=== PATIENT | female | born 1985 | race Caucasian/White ===

== ENCOUNTER → 2018-11-30 13:58 | Outpatient (CLI) | payer OTHER, SELFPAY ==
[2018-11-30 13:32] VITALS: BMI 47.1
[2018-11-30 15:51] LABS: hCG Titer Quant., Serum 1812 mIU/mL (1-3)
== END ==
PROVIDERS: Nurse Practitioner Women's Health; Family Provider Family Medicine; PCP Family Medicine; Referring Provider Obstetrics & Gynecology; Visit Provider Obstetrics & Gynecology
DX: Z34.90 Encounter for supervision of normal pregnancy, unspecified, unspecified trimester (principal)
CPT/HCPCS: 36415; 84702

== ENCOUNTER → 2018-12-02 10:18 | Outpatient (CLI) | payer OTHER, SELFPAY ==
[2018-11-30 13:32] VITALS: BMI 47.1
[2018-12-02 12:01] LABS: hCG Titer Quant., Serum 3530 mIU/mL (1-3)
== END ==
PROVIDERS: Family Provider Family Medicine; PCP Family Medicine; Referring Provider Nurse Practitioner Women's Health; Visit Provider Nurse Practitioner Women's Health
DX: Z34.90 Encounter for supervision of normal pregnancy, unspecified, unspecified trimester (principal)
CPT/HCPCS: 36415; 84702

== ENCOUNTER → 2018-12-18 10:04 | Outpatient (CLI) | payer OTHER, SELFPAY ==
[2018-12-18 09:23] VITALS: BMI 46.5
[2018-12-18 10:52] LABS: Absolute Lymphocyte Count 2.45 X10^3/ul (0.83-4.51); Absolute Neutrophil Count 6.4 X10^3/uL (2.0-7.7); Basophil# 0.02 X10^3/uL; Basophil% 0.2 % (0-1); Eosinophil# 0.09 X10^3/uL; Hematocrit 38.2 % (37-47); Hemoglobin 12.9 g/dl (12.0-15.0); Lymphocyte # 2.45 X10^3/ul (4.0); Lymphocyte % 26.3 % (19-41); Mean Corp Hgb Conc 33.8 g/gl (32-36); Mean Corpuscular Hgb 30.2 pg (27.0-32.0); Mean Corpuscular Volume 89.5 fL (81-99); Mean Platelet Vol. 9.6 fl (6.2-12.0); Monocyte# 0.37 X10^3/uL; Neutrophil # 6.38 X10^3/uL (2.7-7.7); Neutrophil % 68.3 % (47-70); POSITIVE COUNT NO; POSITIVE DIFFERENTIAL NO; POSITIVE MORPHOLOGY NO; Platelet Count 349 K/mm3 (150-450); RBC Distribution Width CV 13.1 % (11.6-14.6); RBC Distribution Width SD 42.4 fl (35.1-43.9); Red Blood Count 4.27 M/mm3 (4.2-5.4); White Blood Count 9.3 K/mm3 (4.4-11.0)
[2018-12-18 11:12] LABS: Glucose Challenge Gest 1H 50g 140 mg/dL (70-140)
[2018-12-18 12:06] LABS: HIV - WCH Non-Reactive (Nonreactive); Hepatitis B Surface Antibody Reactive; Hepatitis B Surface Antigen Non-Reactive (Nonreactive); Rubella IgG 95.4 IU/mL
[2018-12-18 15:18] LABS: Chlamydia Trachomatis by PCR Negative (Negative); Neisserai gonorrhoeae by PCR Negative (Negative); Probe Check PASS; Sample Adequacy Control PASS; Specimen Processing Control PASS
[2018-12-22 05:48] LABS: Rapid Plasmin Reagin (RPR) NONREACTIVE (NONREACTIVE)
== END ==
PROVIDERS: Family Provider Family Medicine; PCP Family Medicine; Referring Provider Obstetrics & Gynecology; Visit Provider Obstetrics & Gynecology
DX: Z34.90 Encounter for supervision of normal pregnancy, unspecified, unspecified trimester (principal); D68.61 Antiphospholipid syndrome
CPT/HCPCS: 82950; 85025; 86592; 86703; 86706; 86762; 86850; 86900; 87086; 87088; 87340; 87491; 87591; A4216

== ENCOUNTER → 2018-12-26 07:03 | Outpatient (CLI) | payer OTHER, SELFPAY ==
[2018-12-18 09:23] VITALS: BMI 46.5
[2018-12-26 07:58] LABS: Glucose GTT-Gestation. Fasting 85 mg/dL (<105)
[2018-12-26 09:25] LABS: Glucose GTT-Gestational 1 Hr 140 mg/dL (<190)
[2018-12-26 10:06] LABS: Glucose GTT-Gestational 2 Hr 120 mg/dL (<165)
[2018-12-26 11:49] LABS: Glucose GTT-Gestational 3 Hr 79 L (<145)
== END ==
PROVIDERS: Nurse Practitioner Women's Health; Family Provider Family Medicine; PCP Family Medicine; Visit Provider Obstetrics & Gynecology
DX: O99.810 Abnormal glucose complicating pregnancy (principal)
CPT/HCPCS: 36415; 82951; 82952

== ENCOUNTER → 2019-01-30 08:56 | Outpatient (CLI) | payer OTHER, SELFPAY ==
[2019-01-30 08:19] VITALS: BMI 46.5
[2019-01-30 10:07] LABS: T4 Free Direct 0.99 ng/dL (0.76-1.46); Thyroid Stim Hormone (TSH) 2.48 uIU/mL (0.358-3.74)
== END ==
PROVIDERS: Family Provider Family Medicine; PCP Family Medicine; Referring Provider Obstetrics & Gynecology; Visit Provider Obstetrics & Gynecology
DX: L65.9 Nonscarring hair loss, unspecified (principal)
CPT/HCPCS: 36415; 84439; 84443

== ENCOUNTER → 2019-02-27 16:21 | Outpatient (CLI) | payer OTHER, SELFPAY ==
[2019-02-27 15:46] VITALS: BMI 46.5
== END ==
PROVIDERS: Family Provider Family Medicine; PCP Family Medicine; Referring Provider Obstetrics & Gynecology; Visit Provider Obstetrics & Gynecology
DX: Z36.9 Encounter for antenatal screening, unspecified (principal)
CPT/HCPCS: 36415

== ENCOUNTER → 2019-05-15 16:33 | Outpatient (CLI) | payer OTHER, SELFPAY ==
[2019-05-15 15:46] VITALS: BMI 46.5
[2019-05-15 18:05] LABS: Glucose Challenge Gest 1H 50g 141 mg/dL (70-140)
== END ==
PROVIDERS: Family Provider Family Medicine; PCP Family Medicine; Referring Provider Obstetrics & Gynecology; Visit Provider Obstetrics & Gynecology
DX: O99.211 Obesity complicating pregnancy, first trimester (principal); Z3A.00 Weeks of gestation of pregnancy not specified
CPT/HCPCS: 36415; 82950

== ENCOUNTER → 2019-05-23 06:55 | Outpatient (CLI) | payer OTHER, SELFPAY ==
[2019-05-15 15:46] VITALS: BMI 46.5
[2019-05-23 08:56] LABS: Glucose GTT-Gestational 1 Hr 141 mg/dL (<190)
[2019-05-23 09:03] LABS: Glucose GTT-Gestation. Fasting 85 mg/dL (<105)
[2019-05-23 10:55] LABS: Glucose GTT-Gestational 3 Hr 76 L (<145)
[2019-05-23 10:57] LABS: Glucose GTT-Gestational 2 Hr 108 mg/dL (<165)
== END ==
PROVIDERS: Nurse Practitioner Women's Health; Family Provider Family Medicine; PCP Family Medicine; Referring Provider Obstetrics & Gynecology; Visit Provider Obstetrics & Gynecology
DX: O99.810 Abnormal glucose complicating pregnancy (principal); N96 Recurrent pregnancy loss
CPT/HCPCS: 36415; 82951; 82952

== ENCOUNTER 2019-05-29 02:55 | Outpatient (CLI) | payer OTHER, SELFPAY ==
[2019-05-15 15:46] VITALS: BMI 46.5
[2019-05-29 03:12] VITALS: BMI 48.0
--- NOTE | 2019-05-29 05:50 | OB.TRI.PN ---
Progress Notes Date of Service: 05/29/19 Progress Note: Patient presents for triage evaluation secondary to decreased movement FHT: 150 Moderate variability reactive no decelerations category I tracing 10 x 10 accels [place]: no Contractions Assessment and plan: decreased fm Reactive NST, reassuring maternal and status patient discharged to home to follow-up as scheduled See problem list details for additional plan information. - Problem List (1) Decreased movement affecting management of in third trimester Status: Acute Multi Select Codes - Urinary/Genital Urinary/Genital CPT Codes: 10619-48 non-stress test Interp
== END 2019-05-29 04:00 | disposition home or self-care (01) ==
LOC: WPOUT 03:06 → WP 03:06
PROVIDERS: Family Provider Family Medicine; PCP Family Medicine; Referring Provider Obstetrics & Gynecology; Visit Provider Obstetrics & Gynecology
DX: O36.8130 Decreased fetal movements, third trimester, not applicable or unspecified (principal); Z3A.00 Weeks of gestation of pregnancy not specified
CPT/HCPCS: 59025; 59050; 99218; G0378

== ENCOUNTER 2019-06-18 15:20 | Outpatient (CLI) | payer OTHER, SELFPAY ==
[2019-06-11 08:47] VITALS: BMI 48.0
[2019-06-18 15:33] VITALS: BMI 48.2
--- NOTE | 2019-06-18 16:50 | OB.TRI.HP_ITS ---
- Problem List (1) Abnormal glucose affecting Status: Acute Comment: 3hr results normal. 2nd trimester testing was abnormal, needs 3 hr. (2) Family history of neural tube defect Status: Acute Comment: plan AFP screen, disussed folic acid supplementation (3) History of recurrent miscarriages Status: Acute Comment: APL workup negative (4) Obesity affecting Status: Acute Qualifiers: Trimester: first trimester Qualified Code(s): O99.211 - Obesity co mplicating , first trimester Comment: discussed heaelthy weight gain. 1 tm glucola. plan growth us and testing after 32 weeks (5) Status: Acute Qualifiers: Weeks of gestation: 30 weeks Qualified Code(s): Z3A.30 - 30 weeks gestation of Comment: carrier and genetic testing declined. AFP drawn 02/27- (6) Supervision of high risk , antepartum Status: Acute Comment: PRR GERALDINE 08/04/19 girl Amy Portillo Oliver History of Present Illness Reason For Visit: NST Final GERALDINE Source: LMP Allergies No Known Allergies Allergy (Verified 06/18/19 15:34) - Pertinent Past Medical History Surgical History: Past Surgical History (Last Reviewed 05/29/19 @ 15:35 by Patience Triana) Status post breast reduction NST - FHR Rate Baby A Baseline: 130 Variability:: Moderate Accelerations:: 15 x 15 Decelerations:: None NST Reactive:: Yes FHR Category:: Category I Uterine Activity:: no regular Multi Select Codes - Urinary/Genital Urinary/Genital CPT Codes: 31651-08 non-stress test Interp
== END 2019-06-18 16:15 | disposition home or self-care (01) ==
LOC: WPOUT 15:24 → WP 15:24
PROVIDERS: Family Provider Family Medicine; PCP Family Medicine; Referring Provider Obstetrics & Gynecology; Visit Provider Obstetrics & Gynecology
DX: Z34.90 Encounter for supervision of normal pregnancy, unspecified, unspecified trimester (principal)
CPT/HCPCS: 59025

== ENCOUNTER → 2019-06-19 13:56 | Outpatient (CLI) | payer OTHER, SELFPAY ==
[2019-06-11 08:47] VITALS: BMI 48.0
[2019-06-18 15:33] VITALS: BMI 48.2
--- NOTE | 2019-06-19 13:57 | US_ITS ---
STUDY: SECOND AND THIRD TRIMESTER OBSTETRICAL ULTRASOUND - LIMITED REASON FOR EXAM: Female, 33 years old GROWTH -- SUPERVISION OF HIGH RISK -- OBESITY AFFECTING LMP: October 28, 2018 based on current estimate determined at June 11, 2019 office visit. PRIOR ULTRASOUND: None. TECHNIQUE: Transabdominal TECHNICAL QUALITY: Adequate. FINDINGS: There is a single intrauterine fetus. The fetus is in a cephalic presentation. There is demonstrated cardiac activity with a heart rate of 157 bpm. There is a normal amniotic fluid volume. The largest amniotic fluid pocket measures 5.1 cm. The amniotic fluid index (DU) is 16.75 cm. The placenta is anterior in location and is not low lying. There are Grade 2 placental changes. The maternal cervix is obscured by cephalic presentation and further, not definitively evaluated, secondary to maternal empty urinary bladder. BIOMETRY: BPD: 8.61 cm: 34 weeks, 5 days HC: 30.38 cm: 33 weeks, 5 days AC: 29.87 cm: 33 weeks, 5 days FL: 6.22 cm: 32 weeks, 1 days FL/AC 20.81 FL/BPD 72.21 FL/HC 20.46 CI 82.13 HC/AC 1.02 Age by LMP: 33 weeks, 3 days. GERALDINE by LMP: August 04, 2019. age by current US: 33 weeks, 3 days. GERALDINE by current US: August 04, 2019. Estimated weight: 2199 grams, +/- 325 grams, 38.9 percentile. Gender: Indeterminate. anatomic survey not performed on this late gestation. US/OB Limited With Biometrics IMPRESSION: Viable, harmon, cephalic presentation intrauterine . Please see above. All calculated biometric indices/ratios lie within established normal ranges. anatomic survey not performed in this relatively late gestation. Normal DU relative to gestational age (8 to18 from week 22 to week 35). Electronically Signed: Randolph Anthony MD at 10:05 EST , Service support ,
== END ==
PROVIDERS: Family Provider Family Medicine; PCP Family Medicine; Referring Provider Obstetrics & Gynecology; Visit Provider Obstetrics & Gynecology
DX: O09.90 Supervision of high risk pregnancy, unspecified, unspecified trimester (principal); O99.210 Obesity complicating pregnancy, unspecified trimester; Z3A.00 Weeks of gestation of pregnancy not specified
CPT/HCPCS: 76816

== ENCOUNTER → 2019-07-12 12:53 | Outpatient (CLI) | payer OTHER, SELFPAY ==
[2019-06-25 15:47] VITALS: BMI 48.2
--- NOTE | 2019-07-12 12:54 | US_ITS ---
STUDY: SECOND AND THIRD TRIMESTER OBSTETRICAL ULTRASOUND REASON FOR EXAM: Female, 33 years old GROWTH LMP: October 28, 2018. TECHNIQUE: Transabdominal TECHNICAL QUALITY: Adequate. PRIOR ULTRASOUND: Comparison is made with prior examination dated June 19, 2019 and July 12, 2019. FINDINGS: There is a single intrauterine fetus. The fetus is in a cephalic presentation. There is demonstrated cardiac activity with a heart rate of 150 bpm. There is a normal amniotic fluid volume. The largest amniotic fluid pocket measures 5.2 cm. The amniotic fluid index (DU) is 13.7 cm. The placenta is anterior in location and is not low lying. There are Grade 1 placental changes. The cervix was not able to be measured due to the head position. The adnexal regions are not visualized. BIOMETRY: BPD: 8.8 cm: 35 weeks, 3 days HC: 33.6 on: 35 weeks, 3 days AC: 32.3 cm: 36 weeks, 1 days FL: 6.9 cm: 35 weeks, 1 days CI: 79% FL/BPD: 78% FL/HC: FL/AC: 21% HC/AC: 1.04 age by current US: 36 weeks, 1 days. GERALDINE by current US: August 08, 2019. Estimated weight: 2854 grams, +/- 422 grams, 36 %. age by prior US: 36 weeks, 5 days. GERALDINE by prior US: August 04, 2019. Age by LMP: 36 weeks, 5 days. GERALDINE by LMP: August 04, 2019. . US/OB Limited With Biometrics IMPRESSION: Single live intrauterine gestation with a mean gestational age of 36 weeks and 5 days. The measurements obtained today following thin the normal expected range. Electronically Signed: Harlan Matthews, at 9:38 EST , Service support ,
--- NOTE | 2019-07-12 12:54 | US_ITS ---
STUDY: OBSTETRICAL ULTRASOUND - BIOPHYSICAL PROFILE REASON FOR EXAM: Female, 33 years old WELL BEING LMP: October 27, 2018. PRIOR ULTRASOUND: Comparison is made with prior examination dated June 19, 2019. TECHNIQUE: Transabdominal TECHNICAL QUALITY: Adequate. FINDINGS: There is a single intrauterine fetus. The fetus is in a cephalic presentation. There is demonstrated cardiac activity with a heart rate of 150 bpm. There is a normal amniotic fluid volume. The largest amniotic fluid pocket measures 6.4 cm. The amniotic fluid index (DU) is 13.2 cm. The placenta is anterior in location and is not low lying. There are Grade 1 placental changes. Age by LMP: 36 weeks, 5 days. GERALDINE by LMP: August 04, 2019. age by prior US: 36 weeks, 1 days. GERALDINE by prior US: August 08, 2019. BIOPHYSICAL PROFILE: Breathing Movements (FBM): 2 Gross Body Movements (GBM): 2 Tone (FT): 2 Amniotic Fluid Volume (AFV): 2 TOTAL SCORE: US/Biophysical Profile IMPRESSION: Normal biophysical profile of 01/25. Electronically Signed: Harlan Matthews, at 15:28 EST , Service support ,
== END ==
PROVIDERS: Family Provider Family Medicine; PCP Family Medicine; Referring Provider Obstetrics & Gynecology; Visit Provider Obstetrics & Gynecology
DX: O99.810 Abnormal glucose complicating pregnancy (principal); Z3A.36 36 weeks gestation of pregnancy
CPT/HCPCS: 76816; 76818; 87081

== ENCOUNTER 2019-07-23 07:40 | Inpatient (IN) | payer OTHER, SELFPAY ==
[2019-07-17 15:34] VITALS: BMI 48.2
[2019-07-23 08:25] VITALS: BMI 48.4
[2019-07-23] MEDS: Lactated Ringers 1,000 ML 50 ML IV (10:00)
[2019-07-23 10:20] LABS: Hematocrit 37.9 % (37-47); Hemoglobin 12.6 g/dL (12.0-15.0); Mean Corp Hgb Conc 33.2 g/dL (32-36); Mean Corpuscular Hgb 29.8 pg (27.0-32.0); Mean Corpuscular Volume 89.6 fL (81-99); Mean Platelet Vol. 10.3 fl (6.2-12.0); Platelet Count 322 K/mm3 (150-450); RBC Distribution Width CV 13.6 % (11.6-14.6); RBC Distribution Width SD 44.2 fl (35.1-43.9); Red Blood Count 4.23 M/mm3 (4.2-5.4); White Blood Count 14.3 K/mm3 (4.4-11.0)
[2019-07-23 10:30] LABS: Prothrombin Time (Protime)PT. 12.8 SECONDS (11.7-14.9)
[2019-07-23 10:31] LABS: Partial Thromboplast Time 25.4 Seconds (24.1-36.2)
[2019-07-23] MEDS: Oxytocin 30 units/NS 500 ml 30 UNITS/500 ML IV.SOLN IV (10:40)
[2019-07-23 10:58] LABS: AST(SGOT) 12 U/L (15-37); Alanine Aminotransfer ALT/SGPT 12 U/L (13-56); Creatinine, Serum 0.57 mg/dL (0.55-1.02); EST Glomerular Filtration Rate 131 mL/min (>60); Est Glom Filt Rate - Afr Amer 158 mL/min (>60); Estimated Creatinine Clearance 131.42 ml/min; Uric Acid 4.6 mg/dL (2.6-6.0)
[2019-07-23] MEDS: Lactated Ringers 500 ML 999 ML IV ×2 (12:04→13:48)
[2019-07-23] MEDS: fentaNYL-bupivacaine (epidural) 100 ML BAG EPIDURAL (12:50)
--- NOTE | 2019-07-23 13:04 | HP.PCM_ITS ---
- Problem List (1) Abnormal glucose affecting Status: Acute Comment: 3hr results normal. (2) Family history of neural tube defect Status: Acute Comment: negative AFP screen, disussed folic acid supplementation (3) History of recurrent miscarriages Status: Acute Comment: APL workup negative (4) Obesity affecting Status: Acute Qualifiers: Comment: discussed heaelthy weight gain. 1 tm glucola nl. adequate growth us and testing after 32 weeks (5) Status: Acute Qualifiers: Comment: carrier and genetic testing declined. AFP drawn 02/27- nl (6) Supervision of high risk , antepartum Status: Acute Comment: PRR GERALDINE 08/04/19 girl Amy PC Bandar Oliver History Date of Admission: 07/23/19 Final GERALDINE Source: LMP History of this : This is a 34 year-old, , at 38 weeks gestational age presents IAL SROM clear fluid. she co irregular ctx no vb good fm Surgical History: Surgical History (Last Reviewed 07/12/19 @ 14:04 by Trisha Hicks) Status post breast reduction Z98.890 Allergies No Known Allergies Allergy (Verified 07/23/19 10:09) Home Medications: Home Medications Vit No.124/Iron/Folic [ Vitamin Tablet] 1 ea PO DAILY 09/07/15 ondansetron HCl 4 mg tablet 4 mg PO TID PRN #60 tab 05/31/19 famotidine 20 mg tablet 20 mg PO DAILY #30 tab 07/12/19 Smoking Status: Never smoker Alcohol: None Number of Fetus(es): 1 NST - FHR Rate Baby A Baseline: 130 Variability:: Moderate Accelerations:: 15 x 15 Decelerations:: None NST Reactive:: Yes FHR Category:: Category I Uterine Activity:: irregular History Past Pregnancies: Past Pregnancies previous term previous miscarriages Labs: Mom's Labs & Results 07/23/19 07/23/19 07/23/19 10:00 10:00 10:00 WBC 14.3 H RBC 4.23 Hgb 12.6 Hct 37.9 MCV 89.6 MCH 29.8 MCHC 33.2 RDW Std Deviation 44.2 H RDW Coeff of Melissa 13.6 Plt Count 322 MPV 10.3 PT 12.8 INR 1.0 APTT 25.4 Creatinine Estim Creat Clear Calc Est GFR (MDRD) Af Amer Est GFR (MDRD) Non-Af Uric Acid AST ALT Blood Type A POSITIVE Antibody Screen NEGATIVE 07/23/19 10:00 WBC RBC Hgb Hct MCV MCH MCHC RDW Std Deviation RDW Coeff of Melissa Plt Count MPV PT INR APTT Creatinine 0.57 Estim Creat Clear Calc 131.42 Est GFR (MDRD) Af Amer 158 Est GFR (MDRD) Non-Af 131 Uric Acid 4.6 AST 12 L ALT 12 L Blood Type Antibody Screen Course Did the patient receive Yes care? Labs Blood Type: A RH: POSITIVE RPR/VDRL/Syphilis Nonreactive Rubella status Immune HbSAg Negative Date Done: 12/18/18 Chlamydia Negative Gonorrhea Negative HIV/AIDS Non-Reactive Group B Strep: Negative Current Obstetrical History Gestational Diabetes No Incompetent Cervix No Infertility No IUGR No Macrosomia No Hypertension/Pre-eclampsia No Placenta Previa/Abruption No PTL/PROM No Uterine anomaly No Oligohydramnios No Polyhydramnios No Multiple gestation No Past Medical History Asthma No Diabetes No Hypertension No Heart disease No Mitral valve prolapse No Neurologic/Seizure disorder/ No Migraines Kidney disease No Liver disease No Varicosities No Clotting disorders/Hx of DVT No Thyroid Dysfunction No Other medical diseases No Psychiatric disorders Yes: anxiety-no meds or issues Major trauma No Abnormal PAP smear No Sleep apnea No Mammogram in the last 2 years No Social History Marital Status: Alleged father Deyvi Hx Smoking No Smoking Status Never smoker How long have you used n/a substances (years)? Expected Delivery Method: Spontaneous Vaginal Review of Systems Constitutional: Denies: Fever, Malaise Eyes: Denies: Blurred vision, Vision Change HEENT: Denies: Head Aches, Visual Changes Cardiovascular: Denies: Chest Pain, Palpitations Respiratory: Denies: Cough, Shortness of Breath, Wheezing Gastrointestinal: Denies: Abdominal Pain, Diarrhea, Nausea, Vomiting Genitourinary: Denies: Dysuria, Hematuria Musculoskeletal: Denies: Joint Pain, Muscle pain Skin: Denies: Lesions, Rash Neurological: Denies: Blurred vision, Focal weakness, Headaches Psychiatric: Denies: Anxiety, Depression Endocrine: Denies: Heat/ Cold Intolerance Hematologic/ Lymphatic: Denies: Easy Bruising, Easy Bleeding Physical Exam General: Alert, Cooperative, No apparent distress HEENT: Atraumatic, Normocephalic. Negative for: Thyromegaly, Lymphadenopathy Cardiovascular: Regular rate Lungs: Normal air movement Abdomen: Soft, Non Tender, Gravid Neurological: Deep Tendon Reflexes 2+/4 and Symmetrical, Neuro grossly intact. 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 Negative for: Vulvar lesions Estimated gestational size: Appropriate for gestational size Presentation: Cephalic Assessment/Plan All Active Problems (Last Reviewed 07/17/19 @ 15:33 by Trisha Hicks) Abnormal glucose affecting (Acute) Family history of neural tube defect (Acute) History of recurrent miscarriages (Acute) Obesity affecting (Acute) (Acute) Supervision of high risk , antepartum (Acute) Decreased movement affecting management of in third trimester (Resolved) This is a 34 year-old, , at 38 weeks gestational age presents IAL SROM Patient presents SROM IAL, plan expectant management for , pitocin PRN. Pain management: Plans epidural. GBS neg. Management of any complications: None I have reviewed the [facility] and made any clinically relevant updates.
[2019-07-23] MEDS: Amnioinfusion- 0.9% NS 1,000 ML IV.SOLN. 500 ML INTRA-UTER (15:04)
[2019-07-23] MEDS: Ondansetron 4 MG/2 ML Vial IV (15:57)
[2019-07-23] MEDS: Oxytocin 30 units/NS 500 ml 30 UNITS/500 ML IV.SOLN 334 UNITS IV (16:42)
--- NOTE | 2019-07-23 16:58 | PCM.OPRPT ---
Problem List (1) Abnormal glucose affecting Status: Acute Comment: 3hr results normal. (2) Family history of neural tube defect Status: Acute Comment: negative AFP screen, disussed folic acid supplementation (3) History of recurrent miscarriages Status: Acute Comment: APL workup negative (4) Obesity affecting Status: Acute Qualifiers: Comment: discussed heaelthy weight gain. 1 tm glucola nl. adequate growth us and testing after 32 weeks (5) Status: Acute Qualifiers: Comment: carrier and genetic testing declined. AFP drawn 10- nl (6) Supervision of high risk , antepartum Status: Acute Comment: PRR GERALDINE 08/04/19 girl Amy Portillo Oliver Vaginal Delivery Maternal Presentation: Active Labor ial Method of Induction: Pitocin Amniotic Membrane Rupture Type: Spontaneous at home Amniotic Fluid Description: Clear Date of Procedure: 07/23/19 Pre-Operative Diagnosis: ial Post-Operative Diagnosis: same Surgery/ Procedure Performed: Spontaneous Vaginal Delivery Type of Anesthesia: Epidural Description of Procedure: Patient began pushing and developed a bradycardia and therefore a small episiotomy was cut midline and delivered the head in the DAQUAN presentation. The head was delivered atraumatically and a loose nuchal cord ?1 was identified and easily reduced over the 's head. The anterior and posterior shoulders delivered without complication followed by the rest of the and the infant was placed on the maternal abdomen. Delayed cord clamping was employed for approximately 60 seconds. Cord was clamped and cut and gentle traction was applied to the cord and the placenta delivered spontaneously immediately following it was noted to be intact with three-vessel cord. The perineum and vagina were inspected and noted to have no extension of the episiotomy which was the level of a second-degree perineal laceration which was repaired in the usual fashion with 3-0 Vicryl Rapide. EBL was 200 cc. A tight true knot was noted in the cord approximately 6 cm from the umbilical insertion. Patient and infant tolerated delivery well. Presentation: DAQUAN Placental Delivery Description: Spontaneous Placenta Disposition: [facility] Cord Vessel Description: 3 Vessels Nuchal Cord Compression: With compression Cord Entanglement: Around neck x 1, loose, True Knot(s) Estimated Blood Loss: 300 A gender: Female Episiotomy Description: Midline, Perineal Extension/lac, 2nd degree Medications given after delivery: IV Pitocin Complications: None Multi Select Codes - Urinary/Genital Urinary/Genital CPT Codes: 84525 Vaginal Delivery [facility]
[2019-07-23 18:56] VITALS: BP 144/69; PULSE 102; RESP 18; TEMP 36.7
[2019-07-23 20:50] VITALS: BP 136/78; PULSE 92; RESP 16; TEMP 36.4; O2SAT 97
[2019-07-23 23:45] VITALS: BP 138/78; PULSE 87; RESP 16; TEMP 36.4
[2019-07-24] MEDS: Senna/Docusate Sodium 1 Tablet PO ×2 (00:56→20:29)
[2019-07-24 04:19] VITALS: BP 133/74; PULSE 82; RESP 16; TEMP 36.8
--- NOTE | 2019-07-24 06:58 | DCINST_ITS ---
Discharge Diet: No Restrictions Discharge Activity: Return to Normal Activity, May not drive while taking narcotic pain medications., May Shower May resume sexual activity in: 4-6 weeks Call your doctor if your incision/area has: Continuous Slow Oozing, Sudden Increased Bleeding, Increased Pain/ Swelling, Increased Redness, Foul Smelling Discharge Additional Instructions: If you experience any of the following, contact your healthcare provider. * Bleeding that soaks a pad every hour for 2 hours * Fever 100.4 or higher * Unrelieved incision or abdominal pain * Swelling, redness, discharge or bleeding from your incision or episiotomy site * Your incision begins to separate * Problems urinating (including inability to urinate or burning while urinating). * Visual changes * Severe headache * Flu-like symptoms * Pain or redness in one of both of your breasts * Pain, warmth, tenderness or swelling in your legs, especially the calf area * Frequent nausea and vomiting * Symptoms of depression or anxiety If you experience any of the following, call 911 or go to the nearest Emergency Room. * Chest pain * Problems breathing * Seizure activity * Partial or complete paralysis of a body part, slurred speech, weakness or drooping of the face, or a sudden inability to walk or hold your balance Allergies/Adverse Reactions: Allergies No Known Allergies Allergy (Verified 07/23/19 10:09) Medications to take at Discharge Vit No.124/Iron/Folic [ Vitamin Tablet] 1 ea PO DAILY 09/07/15 ondansetron HCl 4 mg tablet 4 mg PO TID PRN #60 tab 05/31/19 famotidine 20 mg tablet 20 mg PO DAILY #30 tab 07/12/19 Please Follow Up With: Hilaria Quick MD - [phone] When: Call to make an appointment with your doctor in 6 weeks. If you had elevated Blood pressure or 4th degree laceration you will need to be seen in 2 weeks. Primary Care Physician: Joe Pillai III, MD [Primary Care Provider] - Test Results: Test results from this visit will be discussed in further detail at your follow- up appointment, if applicable.
[2019-07-24 07:36] VITALS: BP 125/76; PULSE 78; RESP 20; TEMP 36.3
--- NOTE | 2019-07-24 08:45 | PCM.PN.OB ---
Subjective: Doing well, no complaints.Pain controlled. Denies CP, SOB, N,V. Ambulating well, tolerating po. Lochia moderate, going well. - Physical Exam Vitals/I&O's: Vital Signs Temp Pulse Resp BP Pulse Ox 97.4 F L 78 20 H 125/76 H 97 07/24/19 07:36 07/24/19 07:36 07/24/19 07:36 07/24/19 07:36 07/23/19 20:50 Oxygen Delivery Method Room Air Weight: 300 lb 6.4 oz Body Mass Index (BMI) 48.4 Intake and Output for Last 24 Hours 07/22/19 07/23/19 07/24/19 23:59 23:59 23:59 Intake Total 2339.16 / 2339.16 Output Total 400 / 400 400 / 400 Balance 1939.16 / 193.16 -400 / -400 General: Alert, Oriented x3 Abdomen: Soft, Non Tender, Non-Distended, - - FF below U Laboratory Results 07/23/19 10:00: WBC 14.3 H, RBC 4.23, Hgb 12.6, Hct 37.9, MCV 89.6, MCH 29.8, MCHC 33.2, RDW Std Deviation 44.2 H, RDW Coeff of Melissa 13.6, Plt Count 322, MPV 10.3 07/23/19 10:00: Blood Type A POSITIVE, Antibody Screen NEGATIVE 07/23/19 10:00: PT 12.8, INR 1.0, APTT 25.4 07/23/19 10:00: Creatinine 0.57, Estim Creat Clear Calc 131.42, Est GFR (MDRD) Af Amer 158, Est GFR (MDRD) Non-Af 131, Uric Acid 4.6, AST 12 L, ALT 12 L Current Medications Acetaminophen (Tylenol) 1,000 mg PO Q8H PRN PRN PRN Reason: Pain Score 1-3/10 Bisacodyl (Dulcolax) 10 mg RECTAL UD PRN PRN Reason: If no BM Dibucaine (Dibucaine) 1 applic TOPICAL TID PRN PRN; Protocol PRN Reason: Discomfort Hydrocortisone (Hytone) 1 applic TOPICAL TID PRN PRN; Protocol PRN Reason: Discomfort Methylergonovine Maleate (Methergine) 0.2 mg IM X1 PRN PRN Reason: Excess bleeding/uterine atony Naproxen (Naprosyn) 500 mg PO Q8H PRN PRN PRN Reason: Pain Score 1-3/10 Ondansetron HCl (Zofran) 4 mg IV Q4H PRN PRN PRN Reason: Nausea Oxycodone HCl (Oxyir) 5 - 10 mg PO Q4H PRN PRN PRN Reason: Pain Score 4-10/10 Senna/Docusate Sodium (Senokot-S, Barbra-Colace) 1 - 2 tablet PO DAILY PRN PRN PRN Reason: Constipation Last Admin: 07/24/19 00:56 Dose: 2 tablet Documented by: Simethicone (Mylicon) 80 mg PO PCHS PRN PRN Reason: Indigestion/Stomach pain Sodium Chloride () 5 - 15 ml IV UD PRN PRN Reason: SALINE FLUSH Medical Necessity - Tobacco Use Smoking Status: Never smoker Assessment/Plan All Active Problems (Last Reviewed 07/17/19 @ 15:33 by Trisha Hicks) Abnormal glucose affecting (Acute) Family history of neural tube defect (Acute) History of recurrent miscarriages (Acute) Obesity affecting (Acute) (Acute) Supervision of high risk , antepartum (Acute) Decreased movement affecting management of in third trimester (Resolved) s/p PPD # 1 1. routine post delivery care 2. breast feeding- support given 3. rh positive 4. rubella immune
[2019-07-24 11:55] VITALS: BP 141/80; PULSE 97; RESP 17; TEMP 36.5
[2019-07-24 15:41] VITALS: BP 133/73; PULSE 95; RESP 14; TEMP 36.9
[2019-07-24 20:13] VITALS: BP 144/83; PULSE 75; RESP 14; TEMP 36.6
--- NOTE | 2019-07-24 22:00 | NURSING ---
this RN gave bedside report to anuj MENDES. that RN to assume care of pt at this time.
[2019-07-24 23:28] VITALS: BP 144/88; PULSE 76; RESP 18; TEMP 36.7
[2019-07-25 03:34] VITALS: BP 139/83; PULSE 96; RESP 18; TEMP 36.7
[2019-07-25 07:30] VITALS: BP 123/65; PULSE 75; RESP 16; TEMP 36.5
--- NOTE | 2019-07-25 08:32 | PCM.PN.OB ---
Subjective: Doing well, no complaints.Pain controlled. Denies CP, SOB, N,V. Ambulating well, tolerating po. Lochia moderate, going well. - Physical Exam Vitals/I&O's: Vital Signs Temp Pulse Resp BP Pulse Ox 97.7 F L 75 16 123/65 H 97 07/25/19 07:30 07/25/19 07:30 07/25/19 07:30 07/25/19 07:30 07/23/19 20:50 Oxygen Delivery Method Room Air Weight: 300 lb 6.4 oz Body Mass Index (BMI) 48.4 Intake and Output for Last 24 Hours 07/23/19 07/24/19 07/25/19 23:59 23:59 23:59 Intake Total 2339.16 / 2339.16 Output Total 400 / 400 400 / 400 Balance 1939.16 / 1938.16 -400 / -400 General: Alert, Oriented x3 Abdomen: Soft, Non Tender, - - FF below U Current Medications Acetaminophen (Tylenol) 1,000 mg PO Q8H PRN PRN PRN Reason: Pain Score 1-3/10 Bisacodyl (Dulcolax) 10 mg RECTAL UD PRN PRN Reason: If no BM Dibucaine (Dibucaine) 1 applic TOPICAL TID PRN PRN; Protocol PRN Reason: Discomfort Hydrocortisone (Hytone) 1 applic TOPICAL TID PRN PRN; Protocol PRN Reason: Discomfort Methylergonovine Maleate (Methergine) 0.2 mg IM X1 PRN PRN Reason: Excess bleeding/uterine atony Naproxen (Naprosyn) 500 mg PO Q8H PRN PRN PRN Reason: Pain Score 1-3/10 Ondansetron HCl (Zofran) 4 mg IV Q4H PRN PRN PRN Reason: Nausea Oxycodone HCl (Oxyir) 5 - 10 mg PO Q4H PRN PRN PRN Reason: Pain Score 4-10/10 Senna/Docusate Sodium (Senokot-S, Barbra-Colace) 1 - 2 tablet PO DAILY PRN PRN PRN Reason: Constipation Last Admin: 07/24/19 20:29 Dose: 2 tablet Documented by: Simethicone (Mylicon) 80 mg PO PCHS PRN PRN Reason: Indigestion/Stomach pain Sodium Chloride () 5 - 15 ml IV UD PRN PRN Reason: SALINE FLUSH Medical Necessity - Tobacco Use Smoking Status: Never smoker Assessment/Plan All Active Problems (Last Reviewed 07/17/19 @ 15:33 by Trisha Hicks) Abnormal glucose affecting (Acute) Family history of neural tube defect (Acute) History of recurrent miscarriages (Acute) Obesity affecting (Acute) (Acute) Supervision of high risk , antepartum (Acute) Decreased movement affecting management of in third trimester (Resolved) s/p PPD # 2 1. routine post delivery care 2. breast feeding- support given 3. rh positive 4. rubella immune 5. Enc stool softener 6. home today
--- NOTE | 2019-07-25 08:33 | DCINST_ITS ---
Discharge Diet: No Restrictions Discharge Activity: Return to Normal Activity, May not drive while taking narcotic pain medications., May Shower May resume sexual activity in: 4-6 weeks Call your doctor if your incision/area has: Continuous Slow Oozing, Sudden Increased Bleeding, Increased Pain/ Swelling, Increased Redness, Foul Smelling Discharge Additional Instructions: If you experience any of the following, contact your healthcare provider. * Bleeding that soaks a pad every hour for 2 hours * Fever 100.4 or higher * Unrelieved incision or abdominal pain * Swelling, redness, discharge or bleeding from your incision or episiotomy site * Your incision begins to separate * Problems urinating (including inability to urinate or burning while urinating). * Visual changes * Severe headache * Flu-like symptoms * Pain or redness in one of both of your breasts * Pain, warmth, tenderness or swelling in your legs, especially the calf area * Frequent nausea and vomiting * Symptoms of depression or anxiety If you experience any of the following, call 911 or go to the nearest Emergency Room. * Chest pain * Problems breathing * Seizure activity * Partial or complete paralysis of a body part, slurred speech, weakness or drooping of the face, or a sudden inability to walk or hold your balance Allergies/Adverse Reactions: Allergies No Known Allergies Allergy (Verified 07/23/19 10:09) Medications to take at Discharge Vit No.124/Iron/Folic [ Vitamin Tablet] 1 ea PO DAILY 09/07/15 ondansetron HCl 4 mg tablet 4 mg PO TID PRN #60 tab 05/31/19 famotidine 20 mg tablet 20 mg PO DAILY #30 tab 07/12/19 Primary Care Physician: Joe Pillai III, MD [Primary Care Provider] - Test Results: Test results from this visit will be discussed in further detail at your follow- up appointment, if applicable.
--- NOTE | 2019-07-25 08:33 | PCM.DCVAG ---
Discharge Diet: No Restrictions Discharge Activity: Return to Normal Activity, May not drive while taking narcotic pain medications., May Shower May resume sexual activity in: 4-6 weeks Call your doctor if your incision/area has: Continuous Slow Oozing, Sudden Increased Bleeding, Increased Pain/ Swelling, Increased Redness, Foul Smelling Discharge Additional Instructions: If you experience any of the following, contact your healthcare provider. Bleeding that soaks a pad every hour for 2 hours Fever 100.4 or higher Unrelieved incision or abdominal pain Swelling, redness, discharge or bleeding from your incision or episiotomy site Your incision begins to separate Problems urinating (including inability to urinate or burning while urinating). Visual changes Severe headache Flu-like symptoms Pain or redness in one of both of your breasts Pain, warmth, tenderness or swelling in your legs, especially the calf area Frequent nausea and vomiting Symptoms of depression or anxiety If you experience any of the following, call 911 or go to the nearest Emergency Room. Chest pain Problems breathing Seizure activity Partial or complete paralysis of a body part, slurred speech, weakness or drooping of the face, or a sudden inability to walk or hold your balance Allergies/Adverse Reactions: Allergies No Known Allergies Allergy (Verified 07/23/19 10:09) Medications to take at Discharge Vit No.124/Iron/Folic [ Vitamin Tablet] 1 ea PO DAILY 09/07/15 ondansetron HCl 4 mg tablet 4 mg PO TID PRN #60 tab 05/31/19 famotidine 20 mg tablet 20 mg PO DAILY #30 tab 07/12/19 Primary Care Physician: Joe Pillai III, MD [Primary Care Provider] - Test Results: Test results from this visit will be discussed in further detail at your follow-up appointment, if applicable.
[2019-07-25] MEDS: Naproxen 250 MG Tablet 500 MG PO (09:45)
[2019-07-25 09:47] VITALS: BP 142/83; PULSE 80; TEMP 36.6
[2019-07-25 12:59] VITALS: BP 147/91; PULSE 75; RESP 16; TEMP 36.4; O2SAT 95
== END 2019-07-25 13:20 | disposition home or self-care (01) | DRG 807 ==
PROVIDERS: Admitting Provider Obstetrics & Gynecology; Family Provider Family Medicine; PCP Family Medicine; Referring Provider Obstetrics & Gynecology; Visit Provider Obstetrics & Gynecology
DX: O42.02 Full-term premature rupture of membranes, onset of labor within 24 hours of rupture (principal); Z37.0 Single live birth; O70.1 Second degree perineal laceration during delivery; O99.89 Other specified diseases and conditions complicating pregnancy, childbirth and the puerperium; R00.1 Bradycardia, unspecified; O69.1XX0 Labor and delivery complicated by cord around neck, with compression, not applicable or unspecified; O69.2XX0 Labor and delivery complicated by other cord entanglement, with compression, not applicable or unspecified; O99.62 Diseases of the digestive system complicating childbirth; K21.9 Gastro-esophageal reflux disease without esophagitis; O26.23 Pregnancy care for patient with recurrent pregnancy loss, third trimester; O99.814 Abnormal glucose complicating childbirth; O99.214 Obesity complicating childbirth; E66.9 Obesity, unspecified; Z3A.38 38 weeks gestation of pregnancy; Z82.79 Family history of other congenital malformations, deformations and chromosomal abnormalities
CPT/HCPCS: 59025; 59050; 82565; 84450; 84460; 84550; 85027; 85610; 85730; 86850; 86900; 86901; 99218; J7030; J7120; G0378; J2405

== ENCOUNTER → 2020-09-04 13:03 | Outpatient (CLI) | payer OTHER, SELFPAY ==
[2020-09-04 08:07] VITALS: BMI 44.6
[2020-09-09 16:11] LABS: HPV APTIMA, High Risk Negative (Negative)
== END ==
PROVIDERS: Visit Provider Obstetrics & Gynecology
DX: Z12.4 Encounter for screening for malignant neoplasm of cervix (principal)
CPT/HCPCS: 87624; 88175; G0145

== ENCOUNTER → 2020-09-09 15:38 | Outpatient (CLI) | payer OTHER, SELFPAY ==
[2020-09-04 08:07] VITALS: BMI 44.6
--- NOTE | 2020-09-09 15:40 | US_ITS ---
STUDY: ULTRASOUND OF THE FEMALE PELVIS - COMPLETE REASON FOR EXAM: Female, 35 years old. Check placement of IUD LMP: 09/04/2020. TECHNIQUE: Transabdominal and Transvaginal TECHNICAL QUALITY: Adequate. COMPARISON: Comparison is made with prior examination dated 07/12/2019. FINDINGS: The uterus is anteverted and is in a midline position. The uterus measures 8.1 cm x 5.9 cm x 3.6 cm. There is a Nabothian cyst of the cervix. The endometrium measures 3 mm in thickness, and is hyperechoic. There is no demonstrated endometrial mass. There is a 5 mm x 9 mm x 6 mm fibroid in the body of the uterus. I.U.D. - The patient does have an I.U.D. The right ovary is visualized. The right ovary measures 3.5 cm x 2.8 cm x 2.6 cm. There is no right ovarian cyst or ovarian mass. There is no visualized right adnexal mass or complex lesion. There is normal arterial and normal venous vascularity. The left ovary is visualized. The left ovary measures 3.4 cm x 2.2 cm x 2.5 cm. There is no left ovarian cyst or ovarian mass. There is no visualized left adnexal mass or complex lesion. There is normal arterial and normal venous vascularity. There is no fluid in the cul-de-sac. The pre void volume of the bladder was 406 ml. Polycystic ovary disease: No. US/Pelvic (Non ) IMPRESSION: IUD seen within the endometrium. Subcentimeter uterine fibroid. Electronically Signed: Harlan Matthews MD at 10:16 EDT , Service support ,
--- NOTE | 2020-09-09 15:40 | US_ITS ---
STUDY: ULTRASOUND OF THE FEMALE PELVIS - COMPLETE REASON FOR EXAM: Female, 35 years old. Check placement of IUD LMP: 09/04/2020. TECHNIQUE: Transabdominal and Transvaginal TECHNICAL QUALITY: Adequate. COMPARISON: Comparison is made with prior examination dated 07/12/2019. FINDINGS: The uterus is anteverted and is in a midline position. The uterus measures 8.1 cm x 5.9 cm x 3.6 cm. There is a Nabothian cyst of the cervix. The endometrium measures 3 mm in thickness, and is hyperechoic. There is no demonstrated endometrial mass. There is a 5 mm x 9 mm x 6 mm fibroid in the body of the uterus. I.U.D. - The patient does have an I.U.D. The right ovary is visualized. The right ovary measures 3.5 cm x 2.8 cm x 2.6 cm. There is no right ovarian cyst or ovarian mass. There is no visualized right adnexal mass or complex lesion. There is normal arterial and normal venous vascularity. The left ovary is visualized. The left ovary measures 3.4 cm x 2.2 cm x 2.5 cm. There is no left ovarian cyst or ovarian mass. There is no visualized left adnexal mass or complex lesion. There is normal arterial and normal venous vascularity. There is no fluid in the cul-de-sac. The pre void volume of the bladder was 406 ml. Polycystic ovary disease: No. US/Transvaginal Non- IMPRESSION: IUD seen within the endometrium. Subcentimeter uterine fibroid. Electronically Signed: Harlan Matthews MD at 10:16 EDT , Service support ,
== END ==
PROVIDERS: PCP Family Medicine; Referring Provider Obstetrics & Gynecology; Visit Provider Obstetrics & Gynecology
DX: T83.32XA Displacement of intrauterine contraceptive device, initial encounter (principal)
CPT/HCPCS: 76830; 76856

== ENCOUNTER 2021-11-03 08:22 | Day surgery (SDC) | payer BC, SELFPAY ==
[2021-11-03] VITALS (7 sets, daily range): BP systolic 102–133; BP diastolic 66–92; PULSE 50–59; RESP 16–18; TEMP 36.3–36.9; O2SAT 96–100; BMI 41.5
--- NOTE | 2021-11-03 | FALS_PTH ---
PATIENT: SHIMON JACQUES LOC: [facility] [place] U#:[id number] AGE/SX: 36/F ROOM: RE11/03/[address]: Dr. Hilaria Quick MD : [id number] BED: DIS: 11/03/2021 SPEC #: [id number] RECD: 11/03/21 14:27 STATUS: HARDEEP REJames #: [id number] DANNI: 11/03/21 00:[address]: Hilaria Quick DEPT: SURGICAL PATHOLOGY RECD BY: Reinier Chapa ENTERED: 11/04/21 09:18 SP TYPE: FALL TUBES OTHR DR: No Primary Care Phys Tissues: Fallopian tube Procedures: Surgery Specimen Level II Surgery Specimen Level IV HEADER OPERATION: Laparoscopic salpingectomy, intrauterine device removal PRE-OP DIAGNOSIS: Malpositioned intrauterine device, sterilization TISSUE SUBMITTED: Bilateral fallopian tubes MICROSCOPIC DIAGNOSIS Right and left fallopian tubes, bilateral salpingectomies: Complete cross-sections of two fallopian tubes. Benign paratubal cysts. AM:jesus 11/05/2021 MICROSCOPIC DESCRIPTION Slides are reviewed. GROSS DESCRIPTION Received in fixative is one container labeled with the patient's name and designated bilateral fallopian tubes. The specimen consists of bilateral fallopian tubes including fimbrial ends measuring 7 cm in length and 0.5 cm in diameter and 6 cm in length and 0.5 cm in diameter. The fallopian tubes are not identified as right or left. One of the fallopian tubes show two paratubal cysts measuring 0.5 and 1 cm in greatest dimension. Sections reveal unremarkable cut surfaces. Theatre Arts Professor sections are submitted in two cassettes as follows: 1 ? one fallopian tube, 2 ? second fallopian tube and paratubal cysts. / SJ:jesus 11/04/2021 TC:5 CPT: 82315, 15659
--- NOTE | 2021-11-03 01:52 | PCM.HP.BLA ---
History and Physical Date of Admission: 11/03/21 Intake Visit Reasons: BS iud removal Chief Complaint: lap bs pre op Shipping Receiving Manager Required: No Is patient in pain?: No Allergies No Known Allergies Allergy (Verified 09/17/21 10:40) Is last menstrual period known: No Post menopausal: No Patient : No : No [facility] Medical History (Updated 09/17/21 @ 10:50 by Jessica Winkler) Alcohol use Anxiety Back pain Blackout Leg cramps Non-smoker Wears contact lenses Surgical History Status post breast reduction Family History Grandfather CVA (cerebral vascular accident) Social History adopted: No household members: family housing: house number of children: 2 current occupational status: employed Smoking Status: Never smoker alcohol intake: current details: occasionally substance use type: does not use caffeine: Yes what type of physical activity do you participate in: walking seatbelt use: always do you feel safe at home: Yes 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 Date Name GA/Weeks Outcome Route Bth Weight Infant Gen Labor Lgth Anesthesia Del Locatn Provider FOB 08/19/15 Bandar 38 live - full term 7lbs 16oz Male 12 hours epidural [facility] Dr. Rohini Boyd 07/23/19 Amy 38 live - full term 6lb 7oz Female epidural [facility] [place] Boyd Delivery Date: 08/19/15 No issues during or delivery. Patience Triana Delivery Date: 07/23/19 True Jennifer Wise Constitutional: Denies fatigue, night sweats, weight gain or weight loss ENT ENT: Reports system reviewed and no additional complaints, except as documented Cardio Card: Denies chest pain Resp Resp: Denies cough or dyspnea GI GI: Reports as per HPI; Denies abdominal pain, constipation, nausea or vomiting : Denies nipple discharge, urinary frequency, urinary incontinence, urinary hesitancy, urinary urgency, vaginal discharge, vaginal dryness, vaginal odor or vaginal pruritus Musc Musc: Denies arthralgias, back pain or muscle weakness Skin Skin/Breast: Denies alopecia, change in hair, dry skin, breast mass, breast pain, breast skin changes or nipple discharge Neuro Neuro: Reports system reviewed and no additional complaints, except as documented Psych Psych: Reports system reviewed and no additional complaints, except as documented Endo Endo: Denies cold intolerance, excessive sweating, heat intolerance or polydipsia Delmer/Lymph Hematologic/Lymphatic: Denies easy bleeding, Denies easy bruising and Denies lymphadenopathy Exam Const General: cooperative, healthy appearing, comfortable, no acute distress and well developed Orientation: alert HENMT Head: normal to inspection and normocephalic Ears: hearing grossly normal bilaterally and external ears normal Nose: external nose normal and nares normal Face and sinus: normal facial exam Neck Neck: normal visual inspection and no lymphadenopathy Thyroid: thyroid normal Chest Chest palpation & inspection: normal inspection of the chest Resp Effort & Inspection: normal respiratory effort Auscultation: clear to auscultation bilaterally Cardio Rate: regular rate Rhythm: regular rhythm Heart Sounds: S1 normal and S2 normal GI Inspection: normal to inspection and non-distended Palpation: soft and no hepatosplenomegaly Musc Other: gross motor intact no deficits, full bilateral strength Skin General: no rashes or lesions noted Neuro General: patient alert, patient awake, moves all extremities and no focal motor deficits Motor: muscle tone normal throughout Extrem General: normal to inspection and no pedal edema Psych Appearance: grossly normal Mental Status: mental status grossly normal Affect: normal affect Speech and Movement: speech and movement normal Coding Level of Care Code No Charge Diagnoses Malpositioned IUD T83.32XA Sterilization Z30.2 Assessment and Plan Assessment and Plan (1) Malpositioned IUD: Status: Acute Comment: partial expulsion, patient requests to leave in until sterilization Plan - Dr. Hilaria Quick MD: After discussing the patient's diagnosis and treatment plan options, patient wishes to proceed with surgical management. I have discussed with the patient the risks, benefits, and alternatives of the procedure which include but are not limited to risks of anesthesia, bleeding, infection, possible damage to bowel, bladder, or surrounding vasculature which could lead to additional surgery to evaluate any complications. Patient agrees to procedure and wishes to proceed. ACOG/uptodate references given for additional information regarding procedure. (2) Sterilization: Status: Acute Comment: discussed laparosocpic bilateral salpingectomy when desired UPDATE- I have seen the patient and performed any clinically relevant updates to the history and physical exam. Hilaria Quick MD
[2021-11-03] MEDS: Lactated Ringers 1,000 ML 15 ML IV (08:45)
[2021-11-03 09:16] LABS: Absolute Lymphocyte Count 2.43 X10^3/uL (0.83-4.51); Absolute Neutrophil Count 4.8 X10^3/uL (2.0-7.7); Basophil# 0.04 X10^3/uL; Basophil% 0.5 % (0-1); Eosinophil# 0.14 X10^3/uL; Eosinophils% 1.8 % (0-5); Hematocrit 41.1 % (37-47); Hemoglobin 13.7 g/dL (12.0-15.0); Lymphocyte # 2.43 X10^3/ul (0.83-4.51); Lymphocyte % 31.2 % (19-41); Mean Corp Hgb Conc 33.3 g/dL (32-36); Mean Corpuscular Hgb 30.9 pg (27.0-32.0); Mean Corpuscular Volume 92.8 fL (81-99); Mean Platelet Vol. 9.7 fl (6.2-12.0); Monocyte# 0.38 X10^3/uL; Monocyte% 4.9 % (0-10); NRBC Flagged by Analyzer 0 % (0-5); Neutrophil # 4.77 X10^3/uL (2.7-7.7); Neutrophil % 61.2 % (47-70); Platelet Count 323 K/mm3 (150-450); RBC Distribution Width CV 12.3 % (11.6-14.6); RBC Distribution Width SD 42.5 fl (35.1-43.9); Red Blood Count 4.43 M/mm3 (4.2-5.4); White Blood Count 7.8 K/mm3 (4.4-11.0)
[2021-11-03 09:21] LABS: Internal QC Validated? YES +Cl - CLEAR BKGD
[2021-11-03 09:22] LABS: Pregnancy, Urine Negative Negative
--- NOTE | 2021-11-03 10:21 | OP.PCM_ITS ---
Problems Associated Problem List Diagnoses (1) Malpositioned IUD: (2) Sterilization: Report of Operation Date of Procedure: 11/03/21 Pre-Operative Diagnosis: see problem list Post-Operative Diagnosis: same Surgery/Procedure Performed:: laparoscopic bilateral salpingectomy, iud removal Description of Surgical Findings:: nl uterus tubes ovaries Surgeon: Hilaria Quick Type of Anesthesia: General and Local Special Medications: none Specimen's removed: tubes, iud Drains: none Estimated Blood Loss (mL): 50 Fluids Replaced: crystalloid Description of Procedure: Patient was taken in the operating room and was placed under general anesthesia was prepped and draped in normal sterile fashion in the dorsal lithotomy position. Bladder was drained of clear urine and SCDs were on preoperatively. iud grasped and removed without complication. Uterus was sounded and a uterine manipulator was placed after dilating. Attention was then paid to the abdominal portion of the procedure and the umbilicus was elevated with towel clamps and injected with Marcaine and after a 5 mm incision was made and the Veress needle was entered into the abdomen confirmed to be intra- abdominal with a low opening pressure of less than 5 mmHg. Abdomen was insufflated with CO2 gas and a 5 mm optical trocar was placed under direct visualization. A 5 mm port suprapubically was placed under direct visualization. Uterus was well visualized and bilateral fallopian tubes identified and bilateral tubes were elevated and transecting across the mesosalpinx and the attachment to the uterine corpus bilaterally the tubes were removed without complication. Excellent hemostasis was noted. Fallopian tubes were removed through the lower port site without complication. Liver and upper abdomen were visualized notably within normal limits and no other gross abnormalities were seen in the abdomen. All instruments removed from the abdomen after gas was desufflated. Port sites were closed with 3-0 Monocryl Steri's and op sites were applied. All instruments removed from the vagina and patient was awoken and taken recovery in stable condition. Grafts/Implants Used: none Complications none Admit VTE Documentation VTE Present on Admission: No VTE Mechan Device Prophylaxis: SCD's Multi Select Codes Urinary/Genital Urinary/Genital CPT Codes: 08668 Laproscopic BS/O and Other Procedure See Report ([id number])
--- NOTE | 2021-11-03 10:23 | DCINST_ITS ---
Discharge Instructions Diet Discharge Diet: No restrictions Activity Discharge Activity: Return to Normal Activity, May Not Drive (for 2 weeks or while taking narcotic pain meds.), May Shower and May Take a Tub Bath (in 7 days) May resume sexual activity in: 1 week Weight Bearing Status: Full weight bearing Dressing / Incision Call your doctor if your incision/area has: Continuous Slow Oozing, Sudden Increased Bleeding, Increased Pain/ Swelling, Increased Redness and Foul Smelling Discharge Call your doctor if you observe: Fever of 101 or Higher, Using more than 1 pad per hour, Shortness of breath, Chest pain and Uncontrolled pain Suture Line Care: Avoid Pulling/Pushing and Avoid Pinching/Bending Remove Dressing in: 1 week (if present) Cleanse incision/area with: Soap & Water and Keep Dressing Clean & Dry Follow Up Care When: Call to make an appointment with your doctor for a fu/incision check in 1- 2 weeks. Test Results: Test results from this visit will be discussed in further detail at your follow-up appointment, if applicable. Discharge Plan Admission Attending Provider: Hilaria Quick Primary Care Provider: Care Physician,Therese Primary Discharge Orders/Prescriptions Prescriptions: New oxycodone-acetaminophen [Percocet] 5-325 mg tablet 1 tab PO Q6H PRN (Reason: pain) 7 Days Qty: 20 RF: 0 naproxen [naproxen] 500 MG tablet 500 mg PO BID PRN PRN (Reason: Pain) Qty: 30 RF: 1 Discontinued levonorgestrel 20 mcg/24 hours (5 yrs) 52 mg intrauterine device 1 insert intrauterine ONCE Qty: 1 RF: 0 No Action mometasone 50 mcg/actuation [place],Non-Aerosol 2 spray INTRANASAL DAILY RF: 0 Referrals / Follow Up: Care Physician,No Primary [Primary Care Provider] - Disposition Disposition (needs filled in before D/C Order can be placed): Home, Self Care
[2021-11-03] MEDS: Bupivacaine Mpf 0.5% 30 ML VIAL (10:30)
== END 2021-11-03 13:48 | disposition home or self-care (01) ==
LOC: SDC 08:23 → AC 08:24
PROVIDERS: Referring Provider Obstetrics & Gynecology; Visit Provider Obstetrics & Gynecology
PROC: (CPT 58661; principal; 2021-11-03 09:45)
DX: T83.32XA Displacement of intrauterine contraceptive device, initial encounter (principal); Y83.8 Other surgical procedures as the cause of abnormal reaction of the patient, or of later complication, without mention of misadventure at the time of the procedure; Z30.2 Encounter for sterilization; N83.8 Other noninflammatory disorders of ovary, fallopian tube and broad ligament
CPT/HCPCS: 58661; 58301; 00840; 81025; 85025; 86850; 86900; 86901; 88302; 88305; J7120; J2405

== ENCOUNTER → 2022-09-17 | Outpatient (CLI) | payer BC, SELFPAY ==
[2022-09-24 20:53] LABS: HPV APTIMA, High Risk Negative (Negative)
== END | disposition home or self-care (01) ==
LOC: LABSPEC 15:23
PROVIDERS: PCP Internal Medicine; Referring Provider Obstetrics & Gynecology; Visit Provider Obstetrics & Gynecology
DX: Z12.4 Encounter for screening for malignant neoplasm of cervix (principal)
CPT/HCPCS: 87624; 88175; G0145

== ENCOUNTER → 2022-10-01 | Outpatient (CLI) | payer BC, SELFPAY ==
--- NOTE | 2022-10-01 13:22 | BI_ITS ---
MAMMOGRAPHY - BILATERAL DIAGNOSTIC REASON FOR EXAM: Female, 37 years old. Right breast lump PERTINENT HISTORY: No family history, previous reduction surgery TECHNIQUE: Digital examination. Mediolateral oblique (MLO) and craniocaudad (CC) views of both breasts were obtained, along with exaggerated CC view and 3-D tomosynthesis. CAD: CAD was performed on this study. COMPARISON: None. Baseline examination. FINDINGS: Breast Composition: The breasts are heterogeneously dense, which may obscure small masses. There is hyperdensity in the central lateral right breast corresponding to the palpable lump and further evaluation of this with ultrasound is needed. There is also a subtle area of asymmetry in the central lateral aspect of the left breast which needs further evaluation with ultrasound as well. There is also a 1 cm nodule in the central left breast which should be evaluated with ultrasound as well. BI/DIAG MAMM W/CAD, BILAT IMPRESSION: Further evaluation of both breasts with ultrasound recommended. Recall Side: Both Breasts ASSESSMENT CATEGORY: BIRADS Category 0: Incomplete. Need additional imaging evaluation. A letter regarding these results will be sent to the patient by the facility within 30 days. FOLLOW UP RECOMMENDATION: Ultrasound Recommended. (I) Approximately 10% of breast cancers are not detected by mammography. A normal mammogram should not delay biopsy of a clinically suspicious abnormality. Electronically Signed: Marv Vegas MD at 14:29 EDT ,
--- NOTE | 2022-10-01 13:22 | US_ITS ---
STUDY: ULTRASOUND BREAST - RIGHT REASON FOR EXAM: Female, 37 years old. Right breast lump TECHNIQUE: Axial and longitudinal images of the RIGHT breast were performed with a high resolution ultrasound transducer. # OF IMAGES: 65 COMPARISON: Mammogram from earlier today FINDINGS: RIGHT Breast: 4 quadrant and retroareolar ultrasound of the right breast performed. There is dense fibroglandular tissue. Patient has had a history of breast reduction surgery age 20. No suspicious shadowing solid lesion, architectural distortion, or clustered shadowing calcifications. There are dense bands of fibroglandular tissue throughout the right breast consistent with postsurgical change. No suspicious axillary adenopathy IMPRESSION: No suspicious sonographic findings, changes consistent with previous surgery ASSESSMENT CATEGORY: BIRADS Category 1: Negative. A letter regarding these results will be sent to the patient by the facility within 30 days. Electronically Signed: Marv Vegas MD at 8:07 EDT , STUDY: ULTRASOUND BREAST - LEFT REASON FOR EXAM: Female, 37 years old. Abnormal mammogram TECHNIQUE: Axial and longitudinal images of the LEFT breast were performed with a high resolution ultrasound transducer. # OF IMAGES: 65 COMPARISON: Mammogram from earlier today FINDINGS: LEFT Breast: 4 quadrant and retroareolar ultrasound of the left breast performed. There is dense fibroglandular tissue with some architectural distortion consistent with previous reduction surgery. No suspicious shadowing solid lesion, architectural distortion or clustered shadowing calcifications. A 5:00, 4 cm from the nipple is a benign appearing lymph node measuring 0.7 x 0.8 x 0.4 cm. US/Breast Limited Unilateral IMPRESSION: No suspicious sonographic findings ASSESSMENT CATEGORY: BIRADS Category 1: Negative. A letter regarding these results will be sent to the patient by the facility within 30 days. Electronically Signed: Marv Vegas MD at 8:09 EDT ,
== END | disposition home or self-care (01) ==
PROVIDERS: PCP Internal Medicine; Referring Provider Obstetrics & Gynecology; Visit Provider Obstetrics & Gynecology
DX: N63.15 Unspecified lump in the right breast, overlapping quadrants (principal)
CPT/HCPCS: 76642; 77062; 77066; G0279

== ENCOUNTER → 2023-01-24 | Outpatient (CLI) | payer BC, SELFPAY ==
[2023-01-24 07:33] LABS: Absolute Lymphocyte Count 3.64 X10^3/uL (0.83-4.51); Absolute Neutrophil Count 5.3 X10^3/uL (2.0-7.7); Basophil# 0.06 X10^3/uL; Basophil% 0.6 % (0-1); Eosinophil# 0.22 X10^3/uL; Eosinophils% 2.2 % (0-5); Hematocrit 40.4 % (37-47); Hemoglobin 13.5 g/dL (12.0-15.0); Lymphocyte # 3.64 X10^3/ul (0.83-4.51); Lymphocyte % 37.1 % (19-41); Mean Corp Hgb Conc 33.4 g/dL (32-36); Mean Corpuscular Hgb 30.2 pg (27.0-32.0); Mean Corpuscular Volume 90.4 fL (81-99); Mean Platelet Vol. 9.7 fl (6.2-12.0); Monocyte# 0.54 X10^3/uL; Monocyte% 5.5 % (0-10); NRBC Flagged by Analyzer 0 % (0-5); Neutrophil # 5.31 X10^3/uL (2.7-7.7); Neutrophil % 54.3 % (47-70); Platelet Count 352 K/mm3 (150-450); RBC Distribution Width CV 12.6 % (11.6-14.6); RBC Distribution Width SD 41.6 fl (35.1-43.9); Red Blood Count 4.47 M/mm3 (4.2-5.4); White Blood Count 9.8 K/mm3 (4.4-11.0)
[2023-01-24 08:36] LABS: ALB/GLOB Ratio 0.9 RATIO (0.9-2.4); AST(SGOT) 11 U/L (15-37); Alanine Aminotransfer ALT/SGPT 19 U/L (13-56); Albumin, Serum 3.2 g/dL (3.2-5.0); Alkaline Phosphatase 62 U/L (45-117); Anion Gap 5 (5-15); BUN 10 mg/dL (7-18); BUN/Creat Ratio 11.4 RATIO (10-20); Calcium,Total 8.7 mg/dL (8.5-10.1); Chloride 108 mmol/L (98-107); Cholesterol 191 mg/dL (200); Creatinine, Serum 0.88 mg/dL (0.55-1.02); EST Glomerular Filtration Rate 77 mL/min (>60); Est Glom Filt Rate - Afr Amer 94 mL/min (>60); Globulin 3.6 g/dL (2.2-4.2); Glucose 93 mg/dL (74-106); High Density Lipoprotein 73 mg/dL; Potassium 4.1 mmol/L (3.5-5.1); Protein, Total 6.8 g/dL (6.4-8.2); Sodium Level 139 mmol/L (136-145); Thyroid Stim Hormone (TSH) 0.11 uIU/mL (0.358-3.74); Triglycerides 140 mg/dL; Very Low Density Lipoprotein 28 mg/dL (5-40)
[2023-01-24 09:23] LABS: Hemoglobin A1c 5.4 % (3.8-5.6)
== END | disposition home or self-care (01) ==
LOC: LAB 06:01
PROVIDERS: PCP Internal Medicine; Referring Provider Internal Medicine; Visit Provider Internal Medicine
DX: E66.01 Morbid (severe) obesity due to excess calories (principal); Z68.41 Body mass index [BMI] 40.0-44.9, adult
CPT/HCPCS: 36415; 80053; 80061; 83036; 84443; 85025

== ENCOUNTER → 2023-01-27 | Outpatient (CLI) | payer BC, SELFPAY ==
[2023-01-27 08:20] LABS: T4 Free Direct 0.99 ng/dL (0.76-1.46)
[2023-01-27 09:11] LABS: T3 Total - Triiodothyronine 1.56 ng/mL (0.6-1.81)
== END | disposition home or self-care (01) ==
LOC: LAB 07:04
PROVIDERS: PCP Internal Medicine; Referring Provider Internal Medicine; Visit Provider Internal Medicine
DX: R94.6 Abnormal results of thyroid function studies (principal)
CPT/HCPCS: 36415; 84439; 84480

== ENCOUNTER → 2023-02-16 | Outpatient (CLI) | payer BC, SELFPAY ==
--- NOTE | 2023-02-16 10:23 | RAD_ITS ---
STUDY: X-RAY - LUMBAR SPINE REASON FOR EXAM: Female, 37 years old patient with acute back pain. TECHNIQUE: 3 view(s) of the lumbar spine were obtained. COMPARISON: None FINDINGS: Normal lumbar lordosis. There is no substantial scoliosis. There is a normal alignment of the vertebrae. There is multilevel endplate spondylosis of the lumbar vertebrae. There is multi-level degenerative disc disease with multi-level disc space narrowing. There is no demonstrated fracture. The soft tissue structures are unremarkable. RAD/Lumbar Spine 2 or 3 Views IMPRESSION: Degenerative changes of the spine, as detailed above. Electronically Signed: Alva Adan MD at 18:02 EDT ,
== END | disposition home or self-care (01) ==
PROVIDERS: PCP Internal Medicine; Referring Provider Internal Medicine; Visit Provider Internal Medicine
DX: M54.50 Low back pain, unspecified (principal)
CPT/HCPCS: 72100

== ENCOUNTER → 2023-03-07 | Outpatient (CLI) | payer BC, SELFPAY ==
[2023-03-07 07:59] LABS: T4 Free Direct 0.95 ng/dL (0.76-1.46); Thyroid Stim Hormone (TSH) 3.76 uIU/mL (0.358-3.74)
[2023-03-07 08:26] LABS: T3 Total - Triiodothyronine 1.37 ng/mL (0.6-1.81)
== END | disposition home or self-care (01) ==
LOC: LAB 06:10
PROVIDERS: PCP Internal Medicine; Referring Provider Internal Medicine; Visit Provider Internal Medicine
DX: R94.6 Abnormal results of thyroid function studies (principal)
CPT/HCPCS: 36415; 84439; 84443; 84480

== ENCOUNTER → 2024-01-04 | Outpatient (CLI) | payer BC, SELFPAY ==
[2024-01-04 08:34] LABS: Absolute Lymphocyte Count 3.15 X10^3/uL (0.83-4.51); Absolute Neutrophil Count 5.6 X10^3/uL (2.0-7.7); Basophil# 0.06 X10^3/uL; Basophil% 0.6 % (0-1); Eosinophil# 0.17 X10^3/uL; Eosinophils% 1.8 % (0-5); Hematocrit 41.6 % (37-47); Hemoglobin 13.7 g/dL (12.0-15.0); Lymphocyte # 3.15 X10^3/ul (0.83-4.51); Lymphocyte % 33.2 % (19-41); Mean Corp Hgb Conc 32.9 g/dL (32-36); Mean Corpuscular Hgb 29.9 pg (27.0-32.0); Mean Corpuscular Volume 90.8 fL (81-99); Mean Platelet Vol. 9.7 fl (6.2-12.0); Monocyte# 0.47 X10^3/uL; NRBC Flagged by Analyzer 0 % (0-5); Neutrophil # 5.59 X10^3/uL (2.7-7.7); Neutrophil % 58.9 % (47-70); Platelet Count 385 K/mm3 (150-450); RBC Distribution Width CV 12.6 % (11.6-14.6); RBC Distribution Width SD 41.5 fl (35.1-43.9); Red Blood Count 4.58 M/mm3 (4.2-5.4); White Blood Count 9.5 K/mm3 (4.4-11.0)
[2024-01-04 09:09] LABS: AST(SGOT) 13 U/L (15-37); Alanine Aminotransfer ALT/SGPT 15 U/L (13-56); Albumin, Serum 3.5 g/dL (3.2-5.0); Alkaline Phosphatase 59 U/L (45-117); Anion Gap 5 (5-15); BUN 12 mg/dL (7-18); BUN/Creat Ratio 13.4 RATIO (10-20); Calcium,Total 8.8 mg/dL (8.5-10.1); Chloride 108 mmol/L (98-107); Cholesterol 232 mg/dL (200); Creatinine, Serum 0.89 mg/dL (0.55-1.02); EST Glomerular Filtration Rate 75 mL/min (>60); Est Glom Filt Rate - Afr Amer 91 mL/min (>60); Globulin 3.5 g/dL (2.2-4.2); Glucose 99 mg/dL (74-106); High Density Lipoprotein 73 mg/dL; Potassium 4.2 mmol/L (3.5-5.1); Sodium Level 138 mmol/L (136-145); Thyroid Stim Hormone (TSH) 1.27 uIU/mL (0.358-3.74); Triglycerides 194 mg/dL; Very Low Density Lipoprotein 39 mg/dL (5-40)
== END | disposition home or self-care (01) ==
PROVIDERS: PCP Internal Medicine; Referring Provider Internal Medicine; Visit Provider Internal Medicine
DX: Z00.00 Encounter for general adult medical examination without abnormal findings (principal); Z13.6 Encounter for screening for cardiovascular disorders; F41.9 Anxiety disorder, unspecified
CPT/HCPCS: 36415; 80053; 80061; 84443; 85025

== ENCOUNTER → 2025-01-14 | Outpatient (CLI) | payer BC, SELFPAY ==
--- OUTSIDE RECORDS SUMMARY | 2025-01-14 06:07 | XMS RPT_ITS | CCD ---
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 Joe Pillai III Referring Provider Dr. Hilaria Quick Attending Provider 1(330 ) Dr. Hilaria Quick Other Provider 1(330) NO, PHYSICIAN Primary Care Unavailable MEHREEN SERNA Attending Unavailable Dr. Hilaria Quick Attending Provider 1(330 ) Dr. Marlene Toney Primary Care Provider Dr. Marlene Toney Referring Provider 1(330) Dr. Marlene Toney Primary Care Provider Dr. Marlene Toney Attending Provider 1(330) Dr. Marlene Toney Referring Provider 1(330) Unavailable Primary Care Provider Unavailabl e MINA GUSMAN DPJohn Admitting Unavailable MINA GUSMAN DPM Attending Unavailable MINA GUSMAN DPM Primary Care Unavailable Unavailable Primary Care Provider Unavailabl e Dr. Marlene Toney MD Primary Care Provider 1(3 30) Dr. Marlene Toney MD Referring Provider Mina Rapp Attending Provider Dr. Hilaria Quick MD Attending Provider Azucena Paniagua Attending Provider 1(330) Dr. Marlene Toney MD Primary Care Provider 1(3 30) Dr. Marlene Toney MD Referring Provider Dr. Marlene Toney MD Attending Provider Dawna, Marlene Primary Care Unavailable Hilaria Quick Attending Unavailable Dawna, Marlene Referring Unavailable [place], Marlene Primary Care Unavailable Dawna, Marlene Attending Unavailable Dawna, Marlene Referring Unavailable [place], Marlene Referring Unavailable Mina Rapp Attending Unavailable Dawna, Marlene Primary Care Unavailable [place], Marlene Referring Unavailable [place], Marlene Primary Care Unavailable Hilaria Quick Attending Unavailable [place], Marlene Primary Care Unavailable Azucena Vale Attending Unavailable Dawna, Marlene Referring Unavailable Allergies Allergy Classification Reported Allergen(s) Allergy Type Date of Onset Reaction(s) Facility (4 sources) cefdinir; Translations: [CEFDINIR] Drug Allergy 09-02-2015 [facility] Repository Medications Current Medications Medication Drug Class(es) Dates Sig (Normalized) Sig (Original) brompheniramine maleate 0.4 mg/ml / dextromethorphan hydrobromide 2 mg/ml / pseudoephedrine hydrochloride 6 mg/ml oral solution (2 sources) alpha-Adrenergic Agonist, Uncompetitive S-utticz-H-aspartat e Receptor Antagonist, Sigma-1 Agonist Start: 08-13-2020 take 5-10 mL by mouth at bedtime as needed Brompheniramine- Pseudoeph-DM (BROMFED DM) 2-30-10 mg/5 mL syrup Indications: Viral sinusitis Take 5-10 mL by mouth at bedtime as needed. 200 mL 08/13/2020 Active Comment on above: Take 5-10 mL by mout h at bedtime as needed. doxycycline hyclate 50 mg oral capsule (5 sources) Tetracycline-class Drug Start: 12-07-2024 take 1 capsule by mouth once daily as needed Doxycycline Hyclate 50 mg capsule Active 50 mg PO daily as needed for rosacea December 07, 2024 12:00am Start: 01-02-2024 End: 11-15-2024 take 1 capsule by mouth once daily as needed Doxycycline Hyclate 50 mg capsule Discontinued 50 mg PO DAILY as needed January 02, 2024 12:00am November 15, 2024 10:50am for Rosacea flares Ethinyl Estradiol / norgestimate (2 sources) Progestin, Estrogen Start: 12-07-2017 take 1 tablet by mouth once daily norgestimate 0.25 mg-ethinyl estradiol 35 mcg (SPRINTEC) 0.25-35 mg-mcg per tablet Take 1 tablet by mouth once daily. 3 Package 3 12/07/2017 Active Comment on above: Take 1 tablet by ander once daily. ondansetron 4 mg oral tablet (20 sources) Serotonin-3 Receptor Antagonist Start: 12-26-2024 take 1 tablet by mouth every eight hours as needed for nausea and vomiting Ondansetron Hcl 4 mg tablet Active 4 mg PO Q8H as needed for nausea and vomiting 15 0 December 26, 2024 12:00am Start: 04-20-2019 End: 11-20-2021 take 1 tablet by mouth once daily as needed for nausea and vomiting Ondansetron Hcl 4 mg tablet Discontinued 4 mg PO DAILY as needed for nausea and vomiting 30 4 0 November 03, 2021 12:00am November 20, 2021 11:47am Start: 12-29-2018 End: 09-03-2019 take 1 tablet by mouth three times daily as needed for nausea and vomiting Ondansetron Hcl (Zofran) 4 mg tablet Discontinued 4 mg PO THREE TIMES A DAY as needed for nausea and vomiting 60 2 May 31, 2019 10:23am September 03, 2019 9:46am Comment on above: Take 1 tablet by ander as directed. Xsamveyl-Dd-Iog-Fe-FA ( VITAMIN) tab (2 sources) take 1 tablet by mouth once daily Xbdmosig-Yp-Zau-Fe-FA ( VITAMIN) tab Take 1 tablet by mouth once daily. Active take 1 tablet by mouth once tyrell y Feeuhkkz-Gd-Pfb-Fe-FA ( VITAMIN) tab Take 1 tablet by mouth once daily. 0 Active Comment on above: Take 1 tablet by ander once daily. raNITIdine 150 mg oral tablet (2 sources) Histamine-2 Receptor Antagonist Start: 9 take 1 tablet by mouth twice daily ranitidine (ZANTAC) 150 mg tablet Take 1 tablet by mouth twice daily. 04/26/2019 Active Comment on above: Take 1 tablet by ander twice daily. Tirzepatide (Weight Loss) (2 sources) Start: 5 Tirzepatide (Weight Loss) 10 mg/0.5 mL pen injector Active 10 mg SC EVERY WEEK 2 0 January 04, 2025 3:00pm Class 3 obesity Obesity, unspecified for 4 weeks Start: 01-04-2025 End: 01-04-2025 Tirzepatide (Weight Loss) 10 mg/0.5 mL pen injector Discontinued 10 mg SC EVERY WEEK 2 January 04, 2025 1:42pm January 04, 2025 3:01pm Class 3 obesity Obesity, unspecified for 4 weeks Completed/Discontinued Medications Medication Drug Class(es) Dates Sig (Normalized) Sig (Original) acetaminophen 325 mg / oxyCODONE hydrochloride 5 mg oral tablet (9 sources) Opioid Agonist Start: 11-03-2021 End: 11-20-2021 Oxycodone-Acetaminop hen (Percocet) 5-325 mg tablet Discontinued 1 {tbl} PO EVERY 6 HOURS as needed for pain 20 7 0 November 03, 2021 November 20, 2021 11:43am Status post surgical removal of both fallopian tubes Acquired absence of other genital organ(s) azithromycin 250 mg oral tablet (3 sources) Macrolide Antimicrobial Start: 08-02-2024 End: 10-19-2024 take 2-5 tablets by mouth once daily Azithromycin 250 mg tablet Discontinued 0 PO .COMPLEX 6 0 August 02, 2024 1:00am October 19, 2024 3:07pm take 500 mg today (day 1), then 250 mg for 4 days (days 2-5) PO busPIRone hydrochloride 5 mg oral tablet (16 sources) Start: 09-17-2022 End: 11-22-2024 take 1 tablet by mouth twice daily Buspirone 5 mg tablet Discontinued 5 mg PO TWICE A DAY 90 0 October 11, 2024 8:46am November 22, 2024 10:58am cyclobenzaprine hydrochloride 5 mg oral tablet (7 sources) Muscle Relaxant Start: 02-16-2023 End: 11-15-2024 take 5-10 mg by mouth three times daily as needed for muscle spasms Cyclobenzaprine 5 mg tablet Discontinued 5 - 10 mg PO THREE TIMES A DAY as needed for muscle spasm 30 0 February 16, 2023 12:00am November 15, 2024 10:50am Start: 04-08-2016 take 1 tablet by ander th three times daily as needed for muscle spasms cyclobenzaprine (FLEXERIL) 10 mg tablet Indications: Acute midline low back pain without sciatica Take 1 tablet by mouth three times daily as needed for Muscle Spasm. 15 tablet 0 04/08/2016 Active Comment on above: Take 1 tablet by ander th three times daily as needed for Muscle Spasm. Desogestrel-Ethinyl Estradiol (20 sources) Progestin, Estrogen Start: 10-10-2023 End: 10-19-2024 take 0.15 tablet by mouth once daily Desogestrel-Ethinyl Estradiol (Apri) 0.15-0.03 mg tablet Discontinued 1 {tbl} PO daily 84 October 10, 2023 11:08am October 19, 2024 3:07pm Start: 10-10-2023 End: 10-19-2024 take 0.15 tablet by mouth once daily Desogestrel-Ethinyl Estradiol (Apri) 0.15-0.03 mg tablet Discontinued 1 {tbl} PO daily October 10, 2023 11:08am October 19, 2024 3:07pm Start: 03-15-2023 End: 10-10-2023 take 0.15 tablet by mouth once daily Desogestrel-Ethinyl Estradiol (Apri) 0.15-0.03 mg tablet Discontinued 1 {tbl} PO daily 16 06March 15, 2023 12:00am October 10, 2023 11:09am Start: 03-15-2023 End: 10-10-2023 take 0.15 tablet by mouth once daily Desogestrel-Ethinyl Estradiol (Apri) 0.15-0.03 mg tablet Discontinued 1 {tbl} PO daily March 15, 2023 12:00am October 10, 2023 11:01am Start: 03-15-2023 End: 10-10-2023 take 0.15 tablet by mouth once daily Desogestrel-Ethinyl Estradiol (Apri) 0.15-0.03 mg tablet Discontinued 1 {tbl} PO daily March 15, 2023 12:00am October 10, 2023 11:09am Start: 03-15-2023 End: 10-10-2023 take 0.15 tablet by mouth once daily Desogestrel-Ethinyl Estradiol (Apri) 0.15-0.03 mg tablet Discontinued 1 {tbl} PO daily March 15, 2023 12:00am October 10, 2023 11:01am Start: 03-11-2022 End: 09-17-2022 Desogestrel-Ethinyl Estradio l (Apri) 0.15-0.03 mg tablet Discontinued 0 .ROUTE .COMPLEX 16 06March 11, 2022 11:18am September 17, 2022 11:56am TAKE 1 TABLET BY MOUTH EVERY DAY Start: 03-11-2022 End: 09-17-2022 Desogestrel-Ethinyl Estradio l (Apri) 0.15-0.03 mg tablet Discontinued 0 .ROUTE .COMPLEX March 11, 2022 11:18am September 17, 2022 11:56am TAKE 1 TABLET BY MOUTH EVERY DAY Start: 03-08-2022 End: 03-11-2022 Desogestrel-Ethinyl Estradio l (Apri) 0.15-0.03 mg tablet Discontinued 0 .ROUTE .COMPLEX 16 06March 08, 2022 1:17pm March 11, 2022 11:18am TAKE 1 TABLET BY MOUTH EVERY DAY Start: 03-08-2022 End: 03-11-2022 Desogestrel-Ethinyl Estradio l (Apri) 0.15-0.03 mg tablet Discontinued 0 .ROUTE .COMPLEX March 08, 2022 1:17pm March 11, 2022 11:18am TAKE 1 TABLET BY MOUTH EVERY DAY Start: 02-12-2022 End: 03-08-2022 take 0.15 tablet by mouth once daily Desogestrel-Ethinyl Estradiol (Apri) 0.15-0.03 mg tablet Discontinued 1 {tbl} PO daily 16 06February 12, 2022 12:00am March 08, 2022 1:17pm Start: 02-12-2022 End: 03-08-2022 take 0.15 tablet by mouth once daily Desogestrel-Ethinyl Estradiol (Apri) 0.15-0.03 mg tablet Discontinued 1 {tbl} PO daily February 12, 2022 12:00am March 08, 2022 1:17pm Start: 02-12-2022 End: 03-08-2022 Desogestrel-Ethinyl Estradio l (Apri) 0.15-0.03 mg tablet Discontinued 1 TABLET PO daily February 12, 2022 12:00am March 08, 2022 1:17pm Norethindrone-E.Estradiol-Ir on (11 sources) Estrogen Start: 03-14-2023 End: 03-15-2023 Norethindrone-E.Estradiol-Ir on (Minastrin 24 Fe) 1 mg-20 mcg(24) /75 mg (4) tablet,chewable Discontinued 1 {tbl} PO DAILY 84 March 14, 2023 6:33pm March 15, 2023 11:45am Start: 03-14-2023 End: 03-15-2023 Norethindrone-E.Estradiol-Ir on (Minastrin 24 Fe) 1 mg-20 mcg(24) /75 mg (4) tablet,chewable Discontinued 1 {tbl} PO DAILY 84 March 14, 2023 6:33pm March 15, 2023 11:45am Start: 09-17-2022 End: 03-14-2023 Norethindrone-E.Estradiol-Ir on (Minastrin 24 Fe) 1 mg-20 mcg(24) /75 mg (4) tablet,chewable Discontinued 1 {tbl} PO DAILY 84 5 September 17, 2022 12:00am March 14, 2023 6:33pm Start: 09-17-2022 End: 03-14-2023 Norethindrone-E.Estradiol-Ir on (Minastrin 24 Fe) 1 mg-20 mcg(24) /75 mg (4) tablet,chewable Discontinued 1 {tbl} PO DAILY September 17, 2022 12:00am March 14, 2023 6:33pm Start: 09-17-2022 take 1 tablet by ander once daily Norethindrone-E.Estradiol-Iron (Minastri n 24 Fe) 1 mg-20 mcg(24) /75 mg (4) tablet,chewable Active 1 TABLET PO DAILY September 17, 2022 12:00am famotidine 20 mg oral tablet (9 sources) Histamine-2 Receptor Antagonist Start: 07-12-2019 End: 09-03-2019 take 1 tablet by mouth once daily Famotidine (Pepcid) 20 mg tablet Discontinued 20 mg PO DAILY 30 6 July 12, 2019 1:00am September 03, 2019 9:46am fluticasone propionate 0.05 mg/actuat metered dose nasal spray (3 sources) Corticosteroid Start: 01-02-2024 End: 11-15-2024 Fluticasone Propionate 50 mcg/actuation spray,suspension Discontinued 1 NMA INTRANASAL DAILY January 02, 2024 12:00am November 15, 2024 10:50am administer into each nostril levonorgestrel 0.893303 mg/hr intrauterine system (1 source) Progestin, Progestin-containi ng Intrauterine Device Start: 09-03-2019 End: 11-03-2021 levonorgestrel 20 mcg/24 hours (6 yrs) 52 mg intrauterine device Discontinued 1 INSERT INTRA-UTER ONCE September 03, 2019 9:34am November 03, 2021 10:23am methylPREDNISolone 4 mg oral tablet (3 sources) Corticosteroid Start: 08-02-2024 End: 08-08-2024 take 1 tablet by mouth once Methylprednisolone (Medrol (Quinn)) 4 mg tablets,dose pack Discontinued 4 mg PO per package directions 21 6 0 August 02, 2024 1:00am August 07, 2024 1:00am August 08, 2024 1:21am mometasone furoate 0.05 mg/actuat metered dose nasal spray (18 sources) Corticosteroid Start: 10-27-2021 End: 01-02-2024 Mometasone 50 mcg/actuation [place],Non-Aerosol Discontinued 2 NMA INTRANASAL DAILY October 27, 2021 12:00am January 02, 2024 7:35am Start: 10-27-2021 Mometasone Act tammi 2 SPRAY INTRANASAL DAILY October 27, 2021 12:00am Start: 09-04-2020 End: 10-19-2021 Mometasone 50 mcg/actuation spray,non-aerosol Discontinued 2 NMA INTRANASAL DAILY September 04, 2020 12:00am October 19, 2021 11:41am administer into each nostril Start: 09-04-2020 End: 10-19-2021 take 1 spray(s) nasal route once daily Mometasone Discontinued 2 SPRAY INTRANASAL DAILY September 04, 2020 12:00am October 19, 2021 11:41am administer into each nostril naproxen 500 mg oral tablet (18 sources) Nonsteroidal Anti-inflammatory Drug Start: 11-03-2021 End: 11-20-2021 take 1 tablet by mouth twice daily as needed for pain Naproxen 500 MG tablet Discontinued 500 mg PO TWICE DAILY NEEDED as needed for Pain 30 November 03, 2021 12:00am November 20, 2021 11:47am Start: 09-09-2015 End: 11-30-2018 take 250-500 mg by mouth every eight hours as needed for pain Naproxen 250 MG tablet Discontinued 250 - 500 mg PO EVERY 8 HOURS NEEDED as needed for MILD PAIN (1-10) 30 September 09, 2015 12:00am November 30, 2018 1:26pm predniSONE 20 mg oral tablet (5 sources) Start: 02-16-2023 End: 01-02-2024 take 2 tablets by mouth once daily Prednisone 20 mg tablet Discontinued 40 mg PO DAILY 10 February 16, 2023 12:00am January 02, 2024 7:35am Start: 02-16-2023 take 40 mg by mouth once daily Prednisone Active 40 MG PO DAILY February 16, 2023 12:00am promethazine hydrochloride 12.5 mg oral tablet (9 sources) Phenothiazine Start: 12-18-2018 End: 01-30-2019 take 1 tablet by mouth every six hours as needed for nausea and vomiting Promethazine 12.5 mg tablet Discontinued 12.5 mg PO EVERY 6 HOURS as needed for nausea and vomiting 60 2 December 18, 2018 12:00am January 30, 2019 8:18am spironolactone 100 mg oral tablet (8 sources) Aldosterone Antagonist Start: 09-17-2022 End: 01-02-2024 take 1 tablet by mouth once daily Spironolactone (Aldactone) 100 mg tablet Discontinued 100 mg PO DAILY September 17, 2022 12:00am January 02, 2024 7:36am Tirzepatide (Weight Loss) (3 sources) Start: 11-01-2024 End: 12-07-2024 Tirzepatide (Weight Loss) 5 mg/0.5 mL pen injector Discontinued 5 mg SC EVERY WEEK 2 0 November 01, 2024 5:58pm December 07, 2024 12:12pm Class 3 obesity Obesity, unspecified for 4 weeks Start: 11-01-2024 End: 12-07-2024 Tirzepatide (Weight Loss) 5 mg/0.5 mL pen injector Discontinued 5 mg SC EVERY WEEK 2 November 01, 2024 5:58pm December 07, 2024 12:12pm for 4 weeks Start: 11-01-2024 Tirzepatide (W eight Loss) 5 mg/0.5 mL pen injector Active 5 mg SC EVERY WEEK 2 November 01, 2024 5:58pm for 4 weeks Tirzepatide (Weight Loss) (3 sources) Start: 10-19-2024 End: 11-01-2024 Tirzepatide (Weight Loss) (Z epbound) 2.5 mg/0.5 mL pen injector Discontinued 2.5 mg SC EVERY WEEK 2 October 19, 2024 12:00am November 01, 2024 5:58pm Class 3 obesity Obesity, unspecified for 4 weeks Start: 10-19-2024 End: 11-01-2024 Tirzepatide (Weight Loss) (Z epbound) 2.5 mg/0.5 mL pen injector Discontinued 2.5 mg SC EVERY WEEK 2 October 19, 2024 12:00am November 01, 2024 5:58pm for 4 weeks Tirzepatide (Weight Loss) (2 sources) Start: 12-07-2024 End: 01-04-2025 Tirzepatide (Weight Loss) 7. 5 mg/0.5 mL pen injector Discontinued 7.5 mg SC EVERY WEEK 2 December 07, 2024 12:09pm January 04, 2025 1:42pm Class 3 obesity Obesity, unspecified for 4 weeks Start: 12-07-2024 Tirzepatide (W eight Loss) 7.5 mg/0.5 mL pen injector Active 7.5 mg SC EVERY WEEK 2 December 07, 2024 12:09pm for 4 weeks tranexamic acid 650 mg oral tablet (16 sources) Antifibrinolytic Agent Start: 01-15-2022 End: 02-12-2022 Tranexamic Acid (Lysteda) 650 mg tablet Discontinued 1300 mg PO THREE TIMES A DAY 30 5 4 January 15, 2022 12:00am February 12, 2022 2:44pm begin at onset of menstrual bleeding Problems Active Problems Problem Classification Problem Date Documented Date Episodic/Chronic Acute bronchitis (5 sources) Acute bronchitis; Translations: [Acute bronchitis, unspecified] Onset: 10-15-2024 08-02-2024 Episodic Allergic reactions (8 sources) Allergic condition; Translations: [Allergy, unspecified, initial encounter] 11-30-2021 Episodic Anxiety disorders (20 sources) Anxiety; Translations: [Anxiety disorder, unspecified] Onset: 01-07-2025 09-17-2022 Chronic Comment on above: counseling recommend ed. buspar counseling recommend ed. buspar--doing well with this. Benign neoplasm of uterus (13 sources) Uterine leiomyoma; Translations: [Leiomyoma of uterus, unspecified] 09-10-2020 Episodic Comment on above: small fibroid not cl inically significant, Cancer of cervix (9 sources) Atypical squamous cells of undetermined significance on cervical Papanicolaou smear; Translations: [Atypical squamous cells of undetermined significance on cytologic smear of cervix (ASC-US)] 09-10-2020 Episodic Comment on above: 2022 neg pap and HPV Complication of device; implant or graft (12 sources) Malposition of intrauterine contraceptive device; Translations: [Displacement of intrauterine contraceptive device, initial encounter] Episodic Comment on above: partial expulsion, p atient requests to leave in until sterilization Contraceptive and procreative management (15 sources) Patient encounter status; Translations: [Encounter for sterilization] Onset: 10-13-2015 Episodic Comment on above: discussed laparosocp ic bilateral salpingectomy when desired Diabetes or abnormal glucose tolerance complicating ; childbirth; or the puerperium (9 sources) Abnormal glucose level; Translations: [Abnormal glucose complicating ] 09-04-2020 Episodic Comment on above: 3hr results normal. Disorders of lipid metabolism (2 sources) Mixed hyperlipidemia; Translations: [Mixed hyperlipidemia] Onset: 01-07-2025 01-07-2025 Chronic Genitourinary symptoms and ill-defined conditions (6 sources) Female stress incontinence; Translations: [Stress incontinence (female) (male)] 10-10-2023 Chronic Headache; including migraine (8 sources) Generalized headache; Translations: [Generalized headache] 11-30-2021 Episodic Menstrual disorders (4 sources) Excessive and frequent menstruation with regular cycle; Translations: [Excessive or frequent menstruation] 12-27-2022 Chronic Miscellaneous mental health disorders (10 sources) Eating disorder; Translations: [Eating disorder, unspecified] Chronic Comment on above: didn't like zoloft Nonmalignant breast conditions (9 sources) Breast lump; Translations: [Unspecified lump in the right breast, overlapping quadrants] 09-17-2022 Episodic Comment on above: imaging normal Other complications of (10 sources) Maternal obesity complicating , childbirth and the puerperium, antepartum; Translations: [Obesity complicating , unspecified trimester] Onset: 02-04-2015 Resolved: 10-13-2015 09-04-2020 Chronic Comment on above: discussed andreia w eight gain. 1 tm glucola nl. adequate growth us and testing after 32 weeks Other complications of (10 sources) Obesity; Translations: [Obesity complicating , unspecified trimester] Onset: 04-13-2018 10-12-2018 Chronic Comment on above: Nutrition plan: [place] nced calorie restricted nutritional plan approx 2000 nica--new patient goals worksheet printed for reference. Consider tracking/journaling however positive BED screening and discussed this could be a trigger--if so stop tracking and just focus on Mindful eating.Medication plan: Zepbound--increase to 5mg; has at home. Monitor side effects. control-tubal Behavior intervention: Limit snacking; portion control. Limit processed foods. Sleep Hygiene, Stress management 15 minutes a day; limit screen time. Exercise plan: increase NEAT activity; Obtain tracker. Evaluate where she could potentially incorporate getting outside/walking into schedule. Continue current video work outs and at home training. Nutrition plan: [place] nced calorie restricted nutritional plan approx 2000 nica--new patient goals worksheet printed for reference. Consider tracking/journaling however positive BED screening and discussed this could be a trigger--if so stop tracking and just focus on Mindful eating.Medication plan: Zepbound--continue increasing monthly until at max dosing as long as toleratesbirth control-tubal Behavior intervention: Limit snacking; portion control. Limit processed foods. Sleep Hygiene, Stress management 15 minutes a day; limit screen time. Exercise plan: increase NEAT activity; Obtain tracker. Evaluate where she could potentially incorporate getting outside/walking into schedule. Continue current video work outs and at home training. Other complications of (9 sources) High risk ; Translations: [Supervision of high risk , unspecified, unspecified trimester] 09-04-2020 Episodic Comment on above: PRR GERALDINE 08/04/19 girl Amy Portillo Oliver Other complications of (9 sources) Reduced movement; Translations: [Decreased movements, third trimester, not applicable or unspecified] 06-18-2019 Episodic Other female genital disorders (15 sources) Abnormal uterine bleeding; Translations: [Abnormal uterine and vaginal bleeding, unspecified] 01-15-2022 Chronic Comment on above: OCP Other female genital disorders (1 source) Abnormal uterine and vaginal bleeding, unspecified; Translations: [Unspecified disorders of menstruation and other abnormal bleeding from female genital tract] 09-17-2022 Chronic Other female genital disorders (6 sources) H/O: miscarriage; Translations: [Recurrent loss] 11-30-2021 Episodic Other female genital disorders (3 sources) Recurrent loss; 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 balanced reduced calorie FISCAL SERVICES MANAGER, start zepbound and fu. repeat labs due in december PA approved 10/22/24-05/22/25 20 lb weight loss, b each body workouts. balanced reduced calorie FISCAL SERVICES MANAGER, start zepbound and fu. repeat labs due in december 2024 PA approved 10/22/24-05/22/25. Other nutritional; endocrine; and metabolic disorders (2 sources) Obesity, unspecified; Translations: [Obesity, unspecified] Onset: 12-07-2024 Chronic Other nutritional; endocrine; and metabolic disorders (6 sources) Morbid (severe) obesity due to excess calories; Translations: [Morbid obesity] Onset: 01-07-2025 09-17-2022 Chronic Other nutritional; endocrine; and metabolic disorders (2 sources) Obesity caused by energy imbalance; Translations: [Other obesity due to excess calories] Onset: 08-11-2016 08-11-2016 Chronic Other nutritional; endocrine; and metabolic disorders (9 sources) Body mass index 40+ - severely obese; Translations: [Body mass index (BMI) 40.0-44.9, adult] 11-15-2024 Chronic Comment on above: SW- 295; 10/19/24Initi al goal-5% weight reduction within 3 months of nutritional and medication intervention recommendations. Becoming mindful of the foods she is putting into her body; having a healthy relationship with food. initial obesity assessment lab panel reviewed--will need repeat labs in December 2024. Other nutritional; endocrine; and metabolic disorders (1 source) Body mass index (BMI) 40.0-44.9, adult; Translations: [Body mass index [BMI] 40.0-44.9, adult] Onset: 01-07-2025 Chronic Other and delivery including normal (10 sources) ; Translations: [Encounter for supervision of normal , unspecified, unspecified trimester] Onset: 02-04-2015 Resolved: 10-13-2015 09-04-2020 Episodic Comment on above: carrier and genetic testing declined. AFP drawn 02/27- Other screening for suspected conditions (not mental disorders or infectious disease) (5 sources) Encounter for screening for cardiovascular disorders; Translations: [Screening for other and unspecified cardiovascular conditions] Onset: 01-07-2025 12-27-2022 Episodic Other skin disorders (4 sources) Acne, unspecified; Translations: [Other acne] 12-27-2022 Episodic Other upper respiratory infections (2 sources) Acute sinusitis, unspecified; Translations: [Acute sinusitis, unspecified] Onset: 05-24-2022 Episodic Otitis media and related conditions (2 sources) Unspecified Eustachian tube disorder, right ear; Translations: [Unspecified eustachian tube disorder, right ear] Onset: 05-24-2022 Episodic Residual codes; unclassified (11 sources) Family history of neurological disorder; Translations: [Family history of epilepsy and other diseases of the nervous system] Onset: 04-13-2018 09-04-2020 Episodic Comment on above: negative AFP screen, disussed folic acid supplementation Spondylosis; intervertebral disc disorders; other back problems (2 sources) Acute low back pain; Translations: [Chronic lumbosacral pain] 02-16-2023 Episodic Viral infection (2 sources) Other viral agents as the cause of diseases classified elsewhere; Translations: [Other viral agents as the cause of diseases classified elsewhere] Onset: 05-24-2022 Episodic Past or Other Problems Problem Classification Problem Date Documented Da te Episodic/Chronic Hemorrhage during ; abruptio placenta; placenta previa (1 source) Bleeding from female genital tract during ; Translations: [Antepartum hemorrhage, unspecified, unspecified trimester] Onset: 02-04-2015 Resolved: 10-13-2015 10-13-2015 Episodic Other complications of (2 sources) Spotting per vagina in ; Translations: [Spotting complicating , unspecified trimester] Onset: 10-12-2018 10-12-2018 Episodic Other complications of (1 source) Rubella non-immune; Translations: [Supervision of other high risk pregnancies, unspecified trimester] Onset: 02-07-2015 Resolved: 10-13-2015 10-13-2015 Episodic Residual codes; unclassified (1 source) Family history of Spina bifida; Translations: [Family history of other congenital malformations, deformations and chromosomal abnormalities] Onset: 02-04-2015 Resolved: 10-13-2015 06-15-2021 Episodic Screening and history of mental health and substance abuse codes (2 sources) H/O: anxiety state; Translations: [Personal history of other mental and behavioral disorders] Onset: 04-13-2018 04-13-2018 Episodic Results Test Name Value Interpretation Reference Range Facility Internal Medicine Office Vis amie 01-03-2025 Internal Medicine Office Visit [facility] [place], [place] [address] OFFICE VISIT Date of Service: 01/07/25 MR#: [id number] Acct: [id number] Name: SHIMON JACQUES Rep #: [id number] : 1985 Provider: Dr. Marlene durand MD Age/Sex: 39/F Location: [facility] Status: Signed Intake Vital Signs 01/02/24 07:33 12/07/24 11:39 01/07/25 07:36 Height 5 ft 8 in 5 ft 7 in 5 ft 7 in Weight: 274 lb 8 oz BMI 43.0 BP 124/78 H Blood Pressure Location Lt brachial Position Sitting Respiration 16 Pulse 78 Pulse Source Monitor Temp 97.9 F Temp Source Temporal Pulse Oximetry (%) 98 Oxygen Delivery Method room air Intake Visit Reasons: YEARLY Chief Complaint: Annual Model Maker Scale Required: No Accompanied by: Self Is patient in pain?: No Allergies No Known Allergies Allergy (Verified 01/07/25 07:30) Medications ???Medication ???Instructions ???Recorded ???Confirmed ???Type buspirone 5 mg tablet 5 mg PO BID 90 days #180 tabs 11/1101/07/25 Rx doxycycline hyclate 50 mg capsule 50 mg PO QDAY PRN rosacea 5 01/07/25 History ondansetron HCl 4 mg tablet 4 mg PO Q8H PRN nausea and 5 01/07/25 Rx vomiting #15 tabs tirzepatide (weight loss) 10 10 mg (0.5 mL) subcut QWEEK #2 mL 01/04/25 01/07/25 Rx mg/0.5 mL subcutaneous pen injector Have you fallen in the past year?: No Nurse's Note: lost 25lbs using zepbound [facility] Medical History Breast lump on right side at 9 o'clock position Generalized headaches Bone fracture Allergies Wears contact lenses Anxiety Alcohol use Back pain Blackout Non-smoker Leg cramps Malpositioned IUD Sterilization History of recurrent miscarriages Surgical History Status post bilateral salpingectomy Status post breast reduction Family History (Updated 01/07/25 @ 07:[address] Marlene Toney MD) Grandfather CVA (cerebral vascular accident) Arthritis Grandmother Arthritis Father Hypertension High cholesterol Bladder cancer Grandfather Heart disease Uncle Heart disease Social History (Updated 01/07/25 @ 07:[address] 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 1. Little interest or pleasure in doing things: not at all 2. Feeling down, depressed, or hopeless: not at all 3. Trouble falling or staying asleep, or sleeping too much: not at all 4. Feeling tired or having little energy: not at all 5. Poor appetite or overeating: not at all 6. Feeling bad about yourself - or that you are a failure or have let yourself and your family down: not at all 7. Trouble concentrating on things, such as reading the newspaper or watching television: not at all 8. Moving or speaking so slowly that other people could have noticed? - Or the opposite - being so fidgety or restless that you have been moving around a lot more than usual: not at all 9. Thoughts that you would be better off or of hurting yourself in some way: not at all Total score: 0 If you checked off any problems, how difficult have these problems made it for you to do your work, take care of things at home, or get along with other people?: not difficult at all Source: Developed by Drs. Stepan Joseph, Didi Mccurdy, Wei Amaya and colleagues, with an educational frieda from [employer]. GRANT-7 BMS GRANT-7 Feeling nervous, anxious, or on edge: 1 = Several days Not being able to stop or control worryin = Not at all Worrying too much about different things: 0 = Not at all Trouble relaxin = Several days Being so restless that it is hard to sit still: 0 = Not at all Becoming easily annoyed or irritable: 0 = Not at all Feeling afraid as if something awful might happen: 0 = Not at all Total GRANT-7 score (0-4 normal; 5-9 mild; 10-14 moderate; 15-21 severe): 2 Source: Developed by Drs. Stepan Joseph, Didi Mccurdy, Wei Amaya and colleagues, with (more content not included)... [facility] Construction Plumber Office Visit Reporton 12-07-2024 Construction Plumber Office Visit Report [facility] [address], [address] [place] [address] OFFICE VISIT Date of Service: 12/07/24 MR#: [id number] Acct: [id number] Name: SHIMON JACQUES Rep #: [id number] : 1985 Provider: Dr. Hilaria arteaga MD Age/Sex: 39/F Location: [facility] [place] Status: Signed Intake Vital Signs 10/19/24 16:04 11/15/24 10:48 12/07/24 11:39 Height 5 ft 7 in 5 ft 7 in 5 ft 7 in Weight: 287 lb 8 oz 277 lb 4 oz BMI 45.0 43.4 BP 135/83 H 131/87 H Pulse 70 73 Intake Visit Reasons: weight management Model Maker Scale Required: No Is patient in pain?: No Allergies No Known Allergies Allergy (Verified 10/19/24 15:07) Medications ???Medication ???Instructions ???Recorded ???Confirmed ???Type buspirone 5 mg tablet 5 mg PO BID 90 days #180 tabs /11/1112/07/24 Rx doxycycline hyclate 50 mg capsule 50 mg PO QDAY PRN rosacea 5 12/07/24 History tirzepatide (weight loss) 7.5 7.5 mg (0.5 mL) subcut QWEEK #2 mL 12/07/24 12/07/24 Rx mg/0.5 mL subcutaneous pen injector Last Menstrual Period: 10/05/24 Zika: Zika virus screening: Negative : No Have you fallen in the past year?: No PFSH PFS Medical History Breast lump on right side at 9 o'clock position Generalized headaches Bone fracture Allergies Wears contact lenses Anxiety Alcohol use Back pain Blackout Non-smoker Leg cramps Malpositioned IUD Sterilization History of recurrent miscarriages Surgical History Status post bilateral salpingectomy Status post breast reduction Family History Grandfather CVA (cerebral vascular accident) Arthritis Grandmother Arthritis Father Hypertension High cholesterol Grandfather Heart disease Uncle Heart disease Social History adopted: No household members: family housing: house number of children: 2 current occupational status: employed current occupation: works for [employer] Smoking Status: Never smoker Electronic Cigarette Use: not used alcohol intake: current alcohol intake frequency: holidays/special occasions only details: occasionally Beer and Wine Social substance use type: does not use caffeine: Yes what type of physical activity do you participate in: walking and weight training frequency: 5-6 times per week seatbelt use: always do you feel safe at home: Yes 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 Date Name GA/Weeks Outcome Route Bth Weight Gen Labor Lgth Anesthesia Del Locatn Provider FOB 08/19/15 Bandar 38 live - full term 7lbs 16oz Male 12 hours epidural [facility] Dr. Rohini Boyd 07/23/19 Amy 39 live - full term 6lb 7oz Female epidural [facility] SE John Boyd Delivery Date: 08/19/15 Last Updated by: Patience Triana No issues during or delivery. Delivery Date: 07/23/19 Last Updated by: Jennfier Daly [facility] weight management Details: SHIMON JACQUES is a 39 year old Female presenting for a weight management follow up. Appetite regulation is fairly controlled but increasing in the last few weeks. Craving control is increasing over the last few weeks. She feels like her overall nutrition intake is fair but she needs to increase protein intake. She feels like her overall relationship with food is more positive, less snack cravings, smaller amount is satisfying, portion control is better. She feels like her self body image at this time is improved she works out more comfortably, she put on a smaller swimsuit this morning. Healthy behaviors that are particularly successful at this time are increasing activity. Unhealthy behaviors that we would like to work on are wanting to increase protein. Activity goals at this time 25 minutes most days if not every day. she has a vaction coming up that she wants to stay active, eat the protein and limiting alcohol while on vacation. Female Reproductive History Last Menstrual Period: 10/05/24 ROS Const Reports as per HPI, Denies difficulty sleeping, Denies excessive sweating, Denies fatigue (new onset severe) and Denies fever(s) Eyes Denies change in vision and Denies diplopia ENT Denies dizziness Card Denies chest pain, Denies dyspnea, Denies dyspnea on exertion, Denies palpitations and Denies rapid heart rate Resp Denies dyspnea and Denies dyspnea on exer (more content not included)... [facility] Construction Plumber Office Visit Reporton 11-15-2024 Construction Plumber Office Visit Report [facility] [address], [address] [place] [address] OFFICE VISIT Date of Service: 11/15/24 MR#: [id number] Acct: [id number] Name: SHIMON JACQUES Rep #: [id number] : 1985 Provider: YAO Gilmore Age/Sex: 39/F Location: [facility] [place] Status: Signed Intake Vital Signs 10/19/24 15:06 10/19/24 16:04 11/15/24 10:48 Height 5 ft 7 in 5 ft 7 in 5 ft 7 in Weight: 295 lb 2 oz 287 lb 8 oz BMI 46.2 45.0 BP 134/82 H 135/83 H Pulse 70 Intake Visit Reasons: Weight Management Model Maker Scale Required: No Is patient in pain?: No Allergies No Known Allergies Allergy (Verified 10/19/24 15:07) Medications ???Medication ???Instructions ???Recorded ???Confirmed ???Type buspirone 5 mg tablet 5 mg PO BID #90 tabs 10/11/2410/19 Rx tirzepatide (weight loss) 5 mg/0.5 5 mg (0.5 mL) subcut QWEEK #2 mL 11/01/24 11/15/24 Rx mL subcutaneous pen injector Last Menstrual Period: 10/05/24 Zika: Zika virus screening: Negative : No Have you fallen in the past year?: No PFSH PFSH Medical History Breast lump on right side at 9 o'clock position Generalized headaches Bone fracture Allergies Wears contact lenses Anxiety Alcohol use Back pain Blackout Non-smoker Leg cramps Malpositioned IUD Sterilization History of recurrent miscarriages Surgical History Status post bilateral salpingectomy Status post breast reduction Family History Grandfather CVA (cerebral vascular accident) Arthritis Grandmother Arthritis Father Hypertension High cholesterol Grandfather Heart disease Uncle Heart disease Social History adopted: No household members: family housing: house number of children: 2 current occupational status: employed current occupation: works for [employer] Smoking Status: Never smoker Electronic Cigarette Use: not used alcohol intake: current alcohol intake frequency: holidays/special occasions only details: occasionally Beer and Wine Social substance use type: does not use caffeine: Yes what type of physical activity do you participate in: walking and weight training frequency: 5-6 times per week seatbelt use: always do you feel safe at home: Yes 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 Date Name GA/Weeks Outcome Route Bth Weight Gen Labor [facility] FOB 08/19/15 Bandar 38 live - full term 7lbs 16oz Male 12 hours epidural [facility] Dr. Rohini Boyd 07/23/19 Amy 39 live - full term 6lb 7oz Female epidural [facility] SE John Boyd Delivery Date: 08/19/15 Last Updated by: Patience Triana No issues during or delivery. Delivery Date: 07/23/19 Last Updated by: Jennifer Daly [facility] Weight Management Details: SHIMON JACQUES is a 39 year old Female presenting for a weight management consultation. She is here to reduce her weight to become healthier version of herself. She has two kids at home and would like to be present in their lives. She was started on Zepbound 4 weeks ago; took 4th dose this week. Has her next dosing at home. Reports symptoms of heartburn-notices this when she is larger portion sizes. Female Reproductive History Last Menstrual Period: 10/05/24 ROS Const Reports as per HPI, Denies difficulty sleeping, Denies excessive sweating, Denies fatigue (new onset severe) and Denies fever(s) Eyes Denies change in vision and Denies diplopia ENT Denies dizziness Card Denies chest pain, Denies dyspnea, Denies dyspnea on exertion, Denies palpitations and Denies rapid heart rate Resp Denies dyspnea and Denies dyspnea on exertion GI Reports as per HPI, Denies abdominal pain and Denies constipation Musc Denies numbness Neuro No confusion, No dizziness, No memory loss and No numbness Psych Denies confusion, Denies depression, Denies memory loss, Denies mood swings and Denies suicidal ideation Endo Denies excessive sweating, Denies fatigue (new onset severe), Denies palpitations and Reports other (denies symptoms of hypoglycemia) Exam Const General: cooperative, healthy appearing, comfortable and no acute distress Orientation: alert HENMT Head: normal to inspection and normocephalic Eyes General: appearance normal, both eyes and all related structures Ne (more content not included)... [facility] Construction Plumber Office Visit Reporton 10-19-2024 Construction Plumber Office Visit Report [facility] [address], [address] [place] [address] OFFICE VISIT Date of Service: 10/19/24 MR#: [id number] Acct: [id number] Name: SHIMON JACQUES Rep #: [id number] : 1985 Provider: Dr. 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 Complaint: Annual Model Maker Scale Required: No Is patient in pain?: No Allergies No Known Allergies Allergy (Verified 10/19/24 15:07) Medications ???Medication ???Instructions ???Recorded ???Confirmed ???Type cyclobenzaprine 5 mg tablet 5 - 10 mg (1 - 2 x 5 mg) PO TID 10/19/24 Rx PRN muscle spasm #30 tabs doxycycline hyclate 50 mg capsule 50 mg PO DAILY PRN 01/02/2410/19 History fluticasone propionate 50 1 spray intranasal DAILY 01/02/24 10/19/24 History mcg/actuation nasal spray,suspension buspirone 5 mg tablet 5 mg PO BID #90 tabs 10/11/2408/14 Rx tirzepatide (weight loss) 2.5 2.5 mg (0.5 mL) subcut QWEEK #2 mL 10/19/24 10/19/24 Rx mg/0.5 mL subcutaneous pen injector (Zepbound) Is last menstrual period known: Yes Last Menstrual Period: 10/05/24 Post menopausal: No Patient : No : No PFSH Medical History Breast lump on right side at 9 o'clock position Generalized headaches Bone fracture Allergies Wears contact lenses Anxiety Alcohol use Back pain Blackout Non-smoker Leg cramps Malpositioned IUD Sterilization History of recurrent miscarriages Surgical History Status post bilateral salpingectomy Status post breast reduction Family History Grandfather CVA (cerebral vascular accident) Arthritis Grandmother Arthritis Father Hypertension High cholesterol Grandfather Heart disease Uncle Heart disease Social History adopted: No household members: family housing: house number of children: 2 current occupational status: employed current occupation: works for [employer] Smoking Status: Never smoker Electronic Cigarette Use: not used alcohol intake: current alcohol intake frequency: holidays/special occasions only details: occasionally Beer and Wine Social substance use type: does not use caffeine: Yes what type of physical activity do you participate in: walking and weight training frequency: 5-6 times per week seatbelt use: always do you feel safe at home: Yes 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 Date Name GA/Weeks Outcome Route Bth Weight Gen Labor Lgth Anesthesia Del Locatn Provider FOB 08/19/15 Bandar 38 live - full term 7lbs 16oz Male 12 hours epidural [facility] Dr. Rohini Boyd 07/23/19 Amy 39 live - full term 6lb 7oz Female epidural [facility] John Boyd Delivery Date: 08/19/15 Last Updated by: Patience Triana No issues during or delivery. Delivery Date: 07/23/19 Last Updated by: Jennifer Daly [facility] Encounter for routine gynecological examination Details: SHIMON JACQUES is a 39 year old who presents for annual exam. 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 Last PAP: 09/17/2022 - normal History of abnormal PAP: 2020 - ASCUS Last mammogram: 2022 - normal History of abnormal mammogram: Colon cancer screening: not due Other preventative health care screenings: PCP Dawna Female Reproductive History Last Menstrual Period: 10/05/24 Cycle Length: 21-35 Questions: metorrhagia: No, sexually active: Yes, dyspareunia: No and PCB: No ROS Const Constitutional: Denies fatigue, weight gain or weight loss Cardio Card: Denies chest pain Resp Resp: Denies cough or dyspnea on exertion GI GI: Denies abdominal pain, bloating, change in stool character, constipation or vomiting : Reports as per HPI; Denies difficulty voiding, pelvic pain, urinary frequency, urinary incontinence, urinary urgency, vaginal discharge or vaginal (more content not included)... [facility] Care Visit Reporton 0 08-02-2024 Urgent Care Visit Report [facility] [address], [address] [place] [address] OFFICE VISIT Date of Service: 08/02/24 MR#: [id number] Acct: [id number] Name: SHIMON JACQUES Rep #: [id number] : 1985 Provider: TD Ball Age/Sex: 39/F Location: [facility] [place] Status: Signed Intake Vital Signs 01/02/24 07:33 08/02/24 07:30 Height 5 ft 8 in 5 ft 7 in Weight: 274 lb 287 lb 8 oz BMI 41.6 45.0 BP 142/86 H 114/64 Blood Pressure Location Lt brachial Lt brachial Position Sitting Sitting Respiration 17 16 Pulse 78 83 Pulse Source Monitor NIBP Temp 97.8 F 98.9 F Temp Source Temporal Oral Pulse Oximetry (%) 98 97 Oxygen Delivery Method room air room air Intake Visit Reasons: COUGH, CHEST CONGESTION Chief Complaint: cough, chest congest, drainage Model Maker Scale Required: No Is patient in pain?: No Allergies No Known Allergies Allergy (Verified 08/02/24 07:31) Medications ???Medication ???Instructions ???Recorded ???Confirmed ???Type cyclobenzaprine 5 mg tablet 5 - 10 mg (1 - 2 x 5 mg) PO TID 08/02/24 Rx PRN muscle spasm #30 tabs buspirone 5 mg tablet 5 mg PO BID #180 tabs 10/10/23 Rx desogestrel 0.15 mg-ethinyl 1 tab PO QDAY #84 tabs 10/10/23 Rx estradiol 0.03 mg tablet (Apri) doxycycline hyclate 50 mg capsule 50 mg PO DAILY PRN 01/02/2408/02 History fluticasone propionate 50 1 spray intranasal DAILY 01/02/24 08/02/24 History mcg/actuation nasal spray,suspension azithromycin 250 mg tablet See Rx Instructions PO .COMPLEX #6 08/02/24 08/02/24 Rx tabs methylprednisolone 4 mg tablets in 4 mg PO PER PKG DIR 6 days #21 t abs 08/02/24 08/02/24 Rx a dose pack (Medrol (Quinn)) Is last menstrual period known: No Post menopausal: No Patient : No Have you fallen in the past year?: No Nurse's Note: cough, chest congest, drainage x 1 week. other s/s have resolved. denies lung hx, fevers have resolved. [facility] Medical History Breast lump on right side at 9 o'clock position Generalized headaches Bone fracture Allergies Wears contact lenses Anxiety Alcohol use Back pain Blackout Non-smoker Leg cramps Malpositioned IUD Sterilization History of recurrent miscarriages Surgical History Status post bilateral salpingectomy Status post breast reduction Family History Grandfather CVA (cerebral vascular accident) Arthritis Grandmother Arthritis Father Hypertension High cholesterol Grandfather Heart disease Uncle Heart disease Social History adopted: No household members: family housing: house number of children: 2 current occupational status: employed current occupation: works for [employer] Smoking Status: Never smoker Electronic Cigarette Use: not used alcohol intake: current alcohol intake frequency: holidays/special occasions only details: occasionally Beer and Wine Social substance use type: does not use caffeine: Yes what type of physical activity do you participate in: walking and weight training frequency: 5-6 times per week seatbelt use: always do you feel safe at home: Yes 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 Patient denies fever, chills, sweats. No nausea, vomiting or diarrhea. No hemoptysis, shortness of breath or difficulty breathing. Patient does state this has been ongoing for the past week with no improvement. No other associated symptoms or alleviating/aggravat ing factors. ROS Const Constitutional: No other (6 system ROS completed with pertinent findings in the HPI otherwise normal.) Exam Const General: cooperative and well developed HENMT Head: normal to inspection and atraumatic Ears: hearing grossly normal bilaterally Nose: nasal discharge clear Face and sinus: normal facial exam Mouth: oral mucosae normal Throat: abnormal tonsil bilaterally hypertrophy 1+ Resp Effort Inspection: normal respiratory effort and no audible wheezes Auscultation: Bilateral: Clear to Auscultation Cardio Palpation: normal PMI Rate: regular rate Rhythm: regular rhythm Neuro General: patient alert and CN's II-XI intact bilaterally Psych Appearance: grossly normal Mental Status: mental status grossly normal Coding Level of Care Code Off vis,n (more content not included)... Normal [facility] FOOT COMPLETE RTon FOOT COMPLETE RT [place] [address] Patient: SHIMON JACQUSE Phone#: : [phone] Age: 38 Gender: F Pt. Type: Out Account: [id number] Location: Ordering: MINA GUSMAN Exam Date: 09/05/2023/9:36 Family Phys: Charge Code: 040371 Physician: Armstrong Order #: [id number] Dose#: PROCEDURE: X-RAY FOOT RT COMPLETE MIN 3 VIEWS COMPARISON: None. INDICATIONS: Right foot pain. FINDINGS: BONES: Normal. No significant arthropathy or acute abnormality. SOFT TISSUES: Negative. No visible soft tissue swelling. EFFUSION: None visible. OTHER: Negative. CONCLUSION: No acute disease. Dictated by: Cristina Nunez MD on 09/05/2023 at 10:39 Approved by: Cristina Nunez MD on 09/05/2023 at 10:42 Normal [facility] Laboratory - Chemistry and C hemistry - challengeOrdered By: Marlene Toney on 03-07-2023 Free T4 [Mass/Vol] 0.95 ng/dL 0.76-1.46 [facility] No Panel InformationOrdered By: Marlene Toney on 03-07-2023 Thyroid Stimulating Hormone (TSH) 3.76 uIU/mL 0.358-3.74 [facility] Total Triiodothyronine 1.37 ng/mL 0.6-1.81 [facility] Laboratory - Chemistry and C hemistry - challengeOrdered By: Marlene Toney on 01-27-2023 Free T4 [Mass/Vol] 0.99 ng/dL 0.76-1.46 [facility] No Panel InformationOrdered By: Marlene Toney on 01-27-2023 Total Triiodothyronine 1.56 ng/mL 0.6-1.81 [facility] Absolute lymphocyte countOrd ered By: Marlene Toney on 01-24-2023 Lymphocytes Auto (Unsp spec) [#/Vol] 3.64 10*3/uL 0.83-4.51 [facility] Basophil percentageOrdered B y: Marlene Toney on 01-24-2023 Basophils/100 WBC (Bld) 0.6 % 0-1 [facility] Bilirubin [Mass/Vol] 0.50 mg/dL 0.20-1.00 [facility] Comment on above: For patients on eltr ombopag therapy, use of Dimension [place] TBIL is not recommended. Chloride [Moles/Vol] 108 mmol/L 98-107 [facility] Cholesterol [Mass/Vol] 191 mg/dL <200 [facility] Comment on above: <200 mg/dL Desirable 200-240 mg/dL Borderline >240 mg/dL High Risk Eosinophils/100 WBC (Bld) 2.2 % 0-5 [facility] Glucose [Mass/Vol] 93 mg/dL 74-106 [facility] Neutrophils (Bld) [#/Vol] 5.3 10*3/uL 2.0-7.7 [facility] Neutrophils/100 WBC (Bld) 54.3 % 47-70 [facility] Potassium [Moles/Vol] 4.1 mmol/L 3.5-5.1 [facility] Protein [Mass/Vol] 6.8 g/dL 6.4-8.2 [facility] Sodium [Moles/Vol] 139 mmol/L 136-145 [facility] Triglyceride [Mass/Vol] 140 mg/dL <199 [facility] Comment on above: The drugs N-Acetylcy steine and Metamizole may falsely depress this assay.Serum Triglycerides Reference Interval Normal <150 mg/dL Borderline high 150 - 199 mg/dL High 200 - 499 mg/dL Very High > or = 500 mg/dL WBC (Bld) [#/Vol] 9.8 10*3/uL 4.4-11.0 [facility] Blood erythrocytes count (nu mber/volume)Ordered By: Marlene Toney on 01-24-2023 RBC (Bld) [#/Vol] 4.47 10*6/uL 4.2-5.4 [facility] Blood hemoglobin measurement (mass/volume)Ordered By: Marlene Toney on 01-24-2023 Hemoglobin (Bld) [Mass/Vol] 13.5 g/dL 12.0-15.0 [facility] Blood lymphocytes/100 leukoc ytesOrdered By: Marlene Toney on 01-24-2023 Lymphocytes/100 WBC (Bld) 37.1 % 19-41 [facility] Blood monocytes/100 leukocyt esOrdered By: Marlene Toney on 01-24-2023 Monocytes/100 WBC (Bld) 5.5 % 0-10 [facility] Blood platelet mean volumeOr dered By: Marlene Toney on 01-24-2023 Platelet mean volume (Bld) [Entitic vol] 9.7 fL 6.2-12.0 [facility] Determination of erythrocyte mean corpuscular volume (MCV)Ordered By: Marlene Toney on 01-24-2023 MCV (RBC) [Entitic vol] 90.4 fL 81-99 [facility] Hematocrit Auto (Bld) [Volum e fraction]Ordered By: Marlene Toney on 01-24-2023 Hematocrit (Bld) [Volume fraction] 40.4 % 37-47 [facility] Laboratory - Chemistry and C hemistry - challengeOrdered By: Marlene Toney on 01-24-2023 ALP [Catalytic activity/Vol] 62 U/L 45-117 [facility] ALT [Catalytic activity/Vol] 19 U/L 13-56 [facility] CO2 [Moles/Vol] 26.0 mmol/L 21.0-32.0 [facility] Globulin (S) [Mass/Vol] 3.6 g/dL 2.2-4.2 [facility] Urea nitrogen/Creatinine [Mass ratio] 11.4 mg/mg 10-20 [facility] Laboratory - Hematology and Cell countsOrdered By: Marlene Toney on 01-24-2023 Erythrocyte distribution width (RBC) [Entitic vol] 41.6 fL 35.1-43.9 [facility] Erythrocyte distribution width (RBC) [Ratio] 12.6 % 11.6-14.6 [facility] Immature granulocytes/100 WBC (Bld) 0.300 % 0.0-0.9 [facility] Comment on above: IG% - Immature Granu locytes (promyelocytes, myelocytes and metamyelocytes) > 1% indicates that a LEFT SHIFT is Present. MCH (RBC) [Entitic mass] 30.2 pg 27.0-32.0 [facility] Nucleated RBC/100 WBC (Bld) [Ratio] 0 % 0-5 [facility] MCHC Auto (RBC) [Mass/Vol]Or dered By: Marlene Toney on 01-24-2023 MCHC (RBC) [Mass/Vol] 33.4 g/dL 32-36 [facility] No Panel InformationOrdered By: Marlene Toney on 01-24-2023 Estimated GFR (MDRD) Amer 94 mL/min >60 [facility] Comment on above: GFR Calc Estimated GFR (MDRD) Non-Af Amer 77 mL/min >60 [facility] Comment on above: Non- GFR Calc Thyroid Stimulating Hormone (TSH) 0.11 uIU/mL 0.358-3.74 [facility] Platelets bldOrdered By: Perry Toney on 01-24-2023 Platelets (Bld) [#/Vol] 352 10*3/uL 150-450 [facility] Serum or plasma albumin garrett urement (mass/volume)Ordered By: Marlene Toney on 01-24-2023 Albumin [Mass/Vol] 3.2 g/dL 3.2-5.0 [facility] Serum or plasma albumin/glob ulin mass ratioOrdered By: Marlene Toney on 01-24-2023 Albumin/Globulin [Mass ratio] 0.9 {ratio} 0.9-2.4 [facility] Serum or plasma calcium garrett urement (mass/volume)Ordered By: Marlene Toney on 01-24-2023 Calcium [Mass/Vol] 8.7 mg/dL 8.5-10.1 [facility] Serum or plasma cholesterol in HDL measurement (mass/volume)Ordered By: Marlene Toney on 01-24-2023 Cholesterol in HDL [Mass/Vol] 73 mg/dL >40 [facility] Comment on above: The drugs N-Acetylcy steine and Metamizole may falsely depress this assay. Reference Range HDL <40 mg/dL Low HDL Cholesterol HDL >or= 60 mg/dL High HDL Cholesterol Serum or plasma cholesterol in VLDL measurement (mass/volume)Ordered By: Marlene Toney on 01-24-2023 Cholesterol in VLDL [Mass/Vol] 28 mg/dL 5-40 [facility] Serum or plasma creatinine m easurement (mass/volume)Ordered By: Marlene Toney on 01-24-2023 Creatinine [Mass/Vol] 0.88 mg/dL 0.55-1.02 [facility] Comment on above: The validity of the calculated GFR & GFRAA in patients over 70 years has not been determined. Clinical correlation is essential. Serum or plasma low density lipoprotein (LDL) cholesterol measurement (mass/volume)Ordered By: Marlene Toney on 01-24-2023 Cholesterol in LDL [Mass/Vol] 90 mg/dL 0-130 [facility] Serum or plasma urea nitroge n measurement (mass/volume)Ordered By: Marlene Toney on 01-24-2023 Urea nitrogen [Mass/Vol] 10 mg/dL 7-18 [facility] Thin prep Papanicolaou smear with manual screeningOrdered By: Marlene Toney on 01-24-2023 Thin prep Papanicolaou smear with manual screening 11 U/L 15-37 [facility] Thin prep Papanicolaou smear with manual screening 5 5-15 [facility] Whole blood hemoglobin A1c/t otal hemoglobin ratio (mass fraction)Ordered By: Marlene Toney on 01-24-2023 HbA1c (Bld) [Mass fraction] 5.4 % 3.8-5.6 [facility] Comment on above: Normal < 5.7 % Predi abetic 5.7 - 6.4 % Diabetic >or= 6.5 % Please note range changes. Absolute lymphocyte counton 11-03-2021 Lymphocytes Auto (Unsp spec) [#/Vol] 2.43 10*3/uL 0.83-4.51 [facility] Work Phone: Basophil percentageon 2021 Basophils/100 WBC (Bld) 0.5 % 0-1 [facility] Work Phone: Eosinophils/100 WBC (Bld) 1.8 % 0-5 [facility] Work Phone: [phone] Neutrophils (Bld) [#/Vol] 4.8 10*3/uL 2.0-7.7 [facility] Work Phone: Neutrophils/100 WBC (Bld) 61.2 % 47-70 [facility] Work Phone: WBC (Bld) [#/Vol] 7.8 10*3/uL 4.4-11.0 [facility] Work Phone: [phone] Blood erythrocytes count (nu mber/volume)on 11-03-2021 RBC (Bld) [#/Vol] 4.43 10*6/uL 4.2-5.4 [facility] Work Phone: Blood hemoglobin measurement (mass/volume)on 11-03-2021 Hemoglobin (Bld) [Mass/Vol] 13.7 g/dL 12.0-15.0 [facility] Work Phone: Blood lymphocytes/100 leukoc yteson 11-03-2021 Lymphocytes/100 WBC (Bld) 31.2 % 19-41 [facility] Work Phone: Blood monocytes/100 leukocyt eson 11-03-2021 Monocytes/100 WBC (Bld) 4.9 % 0-10 [facility] Work Phone: Blood platelet mean volumeon 11-03-2021 Platelet mean volume (Bld) [Entitic vol] 9.7 fL 6.2-12.0 [facility] Work Phone: Determination of erythrocyte mean corpuscular volume (MCV)on 11-03-2021 MCV (RBC) [Entitic vol] 92.8 fL 81-99 [facility] Work Phone: Hematocrit Auto (Bld) [Volum e fraction]on 11-03-2021 Hematocrit (Bld) [Volume fraction] 41.1 % 37-47 [facility] Work Phone: Laboratory - Chemistry and C hemistry - challengeon 11-03-2021 HCG ( test) Ql (U) Negative [facility] Work Phone: Comment on above: Very dilute urine sp ecimens, as indicated by a low specificgravity, may not contain service support representative levels of hCG. If is still suspected, a first morning urinespecimen should be collected 48 hours later and tested. Laboratory - Hematology and Cell countson 11-03-2021 Erythrocyte distribution width (RBC) [Entitic vol] 42.5 fL 35.1-43.9 [facility] Work Phone: Erythrocyte distribution width (RBC) [Ratio] 12.3 % 11.6-14.6 [facility] Work Phone: Immature granulocytes/100 WBC (Bld) 0.400 % 0.0-0.9 [facility] Work Phone: Comment on above: IG% - Immature Granu locytes (promyelocytes, myelocytes and metamyelocytes) > 1% indicates that a LEFT SHIFT is Present. MCH (RBC) [Entitic mass] 30.9 pg 27.0-32.0 [facility] Work Phone: Nucleated RBC/100 WBC (Bld) [Ratio] 0 % 0-5 [facility] Work Phone: MCHC Auto (RBC) [Mass/Vol]on 11-03-2021 MCHC (RBC) [Mass/Vol] 33.3 g/dL 32-36 [facility] Work Phone: Platelets bldon 11-03-2021 Platelets (Bld) [#/Vol] 323 10*3/uL 150-450 [facility] Work Phone: Vital Signs Date Time Vital Sign Value Performing Clinician Faci lity 01-07-2025 07:36-0400 Body height 170.[address] Marlene Toney MD Work Phone: [facility] 01-07-2025 07:36-0400 Body mass index (BMI) [Ratio] 43 kg/m2 Dr. Marlene Toney MD Work Phone: [facility] 01-07-2025 07:36-0400 Body temperature 97.9 [degF] Dr. Marlene Toeny MD Work Phone: [facility] 01-07-2025 07:36-0400 Body weight 124.[address] Marlene Toney MD Work Phone: [facility] 01-07-2025 07:36-0400 Diastolic blood pressure 78 mm[Hg] Dr. Marlene Toney MD Work Phone: [facility] 01-07-2025 07:36-0400 Heart rate 78 /min Dr. Marlene Toney MD Work Phone: [facility] 01-07-2025 07:36-0400 Respiratory rate 16 /min Dr. Marlene Toney MD Work Phone: [facility] 01-07-2025 07:36-0400 SaO2% (BldA) [Mass fraction] 98 % Dr. Marlene Toney MD Work Phone: [facility] 01-07-2025 07:36-0400 Systolic blood pressure 124 mm[Hg] Dr. Marlene Toney MD Work Phone: [facility] 12-07-2024 11:39-0400 Body height 170.[address] Marlene Toney MD Work Phone: [facility] 12-07-2024 11:39-0400 Body mass index (BMI) [Ratio] 43.4 kg/m2 Dr. Marlene Toney MD Work Phone: [facility] 12-07-2024 11:39-0400 Body weight 125.[address] Marlene Toney MD Work Phone: [facility] 12-07-2024 11:39-0400 Diastolic blood pressure 87 mm[Hg] Dr. Marlene Toney MD Work Phone: [facility] 12-07-2024 11:39-0400 Heart rate 73 /min Dr. Marlene Toney MD Work Phone: [facility] 12-07-2024 11:39-0400 Systolic blood pressure 131 mm[Hg] Dr. Marlene Toney MD Work Phone: [facility] 11-15-2024 10:48-0400 Body height 170.[address] Marlene Toney MD Work Phone: [facility] 11-15-2024 10:48-0400 Body mass index (BMI) [Ratio] 45 kg/m2 Dr. Marlene Toney MD Work Phone: [facility] 11-15-2024 10:48-0400 Body weight 130.[address] Marlene Toney MD Work Phone: [facility] 11-15-2024 10:48-0400 Diastolic blood pressure 83 mm[Hg] Dr. Marlene Toney MD Work Phone: [facility] 11-15-2024 10:48-0400 Heart rate 70 /min Dr. Marlene Toney MD Work Phone: [facility] 11-15-2024 10:48-0400 Systolic blood pressure 135 mm[Hg] Dr. Marlene Toney MD Work Phone: [facility] 10-19-2024 15:06-0400 Body mass index (BMI) [Ratio] 46.2 kg/m2 Dr. Marlene Toney MD Work Phone: [facility] 10-19-2024 15:06-0400 Body weight 133.[address] Marlene Toney MD Work Phone: [facility] 10-19-2024 15:06-0400 Diastolic blood pressure 82 mm[Hg] Dr. Marlene Toney MD Work Phone: [facility] 10-19-2024 15:06-0400 Systolic blood pressure 134 mm[Hg] Dr. Marlene Toney MD Work Phone: [facility] 08-02-2024 07:30-0500 Body mass index (BMI) [Ratio] 45 kg/m2 Dr. Marlene Toney MD Work Phone: [facility] 08-02-2024 07:30-0500 Body temperature 98.9 [degF] Dr. Marlene Toney MD Work Phone: [facility] 08-02-2024 07:30-0500 Body weight 130.[address] Marlene Toney MD Work Phone: [facility] 08-02-2024 07:30-0500 Diastolic blood pressure 64 mm[Hg] Dr. Marlene Toney MD Work Phone: [facility] 08-02-2024 07:30-0500 Heart rate 83 /min Dr. Marlene Toney MD Work Phone: [facility] 08-02-2024 07:30-0500 Respiratory rate 16 /min Dr. Marlene Toney MD Work Phone: [facility] 08-02-2024 07:30-0500 SaO2% (BldA) [Mass fraction] 97 % Dr. Marlene Toney MD Work Phone: [facility] 08-02-2024 07:30-0500 Systolic blood pressure 114 mm[Hg] Dr. Marlene Toney MD Work Phone: [facility] 02-16-2023 09:41-0400 Body height 172.[address] Marlene oTney Work Phone: [facility] 02-16-2023 09:41-0400 Body mass index (BMI) [Ratio] 41.5 kg/m2 Dr. Marlene Toney Work Phone: [facility] 02-16-2023 09:41-0400 Body temperature 95.7 [degF] Dr. Marlene Toney Work Phone: [facility] 02-16-2023 09:41-0400 Body weight 124.[address] Marlene Toney Work Phone: [facility] 02-16-2023 09:41-0400 Diastolic blood pressure 80 mm[Hg] Dr. Marlene Toney Work Phone: [facility] 02-16-2023 09:41-0400 Heart rate 100 /min Dr. Marlene Toney Work Phone: [facility] 02-16-2023 09:41-0400 Respiratory rate 18 /min Dr. Marlene Toney Work Phone: [facility] 02-16-2023 09:41-0400 SaO2% (BldA) [Mass fraction] 97 % Dr. Marlene Toney Work Phone: [facility] 02-16-2023 09:41-0400 Systolic blood pressure 132 mm[Hg] Dr. Marlene Toney Work Phone: [facility] 12-27-2022 07:37-0400 Body height 172.[address] Marlene Toney Work Phone: [facility] 12-27-2022 07:37-0400 Body mass index (BMI) [Ratio] 40.7 kg/m2 Dr. Marlene Toney Work Phone: [facility] 12-27-2022 07:37-0400 Body temperature 96.5 [degF] Dr. Marlene Toney Work Phone: [facility] 12-27-2022 07:37-0400 Body weight 121.[address] Marlene Toney Work Phone: [facility] 12-27-2022 07:37-0400 Diastolic blood pressure 74 mm[Hg] Dr. Marlene Toney Work Phone: [facility] 12-27-2022 07:37-0400 Heart rate 84 /min Dr. Marlene Toney Work Phone: [facility] 12-27-2022 07:37-0400 Respiratory rate 18 /min Dr. Marlene Toney Work Phone: [facility] 12-27-2022 07:37-0400 SaO2% (BldA) [Mass fraction] 98 % Dr. Marlene Toney Work Phone: [facility] 12-27-2022 07:37-0400 Systolic blood pressure 124 mm[Hg] Dr. Marlene Toney Work Phone: [facility] 09-17-2022 11:23-0400 Body height 172.[address] Marlene Toney Work Phone: [facility] 09-17-2022 11:23-0400 Body mass index (BMI) [Ratio] 40 kg/m2 Dr. Marlene Toney Work Phone: [facility] 09-17-2022 11:23-0400 Body weight 119.[address] Marlene Toney Work Phone: [facility] 09-17-2022 11:23-0400 Diastolic blood pressure 74 mm[Hg] Dr. Marlene Toney Work Phone: [facility] 09-17-2022 11:23-0400 Systolic blood pressure 118 mm[Hg] Dr. Marlene Toney Work Phone: [facility] 11-03-2021 13:42-0400 Body temperature 97.3 [degF] Dr. Joe Pillai III Work Phone: [facility] Work Phone: 11-03-2021 13:42-0400 Diastolic blood pressure 92 mm[Hg] Dr. Joe Pillai III Work Phone: [facility] Work Phone: 11-03-2021 13:42-0400 Heart rate 58 /min Dr. Joe Pillai III Work Phone: [facility] Work Phone: 11-03-2021 13:42-0400 Respiratory rate 16 /min Dr. Joe Pillai III Work Phone: [facility] Work Phone: 11-03-2021 13:42-0400 SaO2% (BldA) [Mass fraction] 99 % Dr. Joe Pillai III Work Phone: [facility] Work Phone: 11-03-2021 13:42-0400 Systolic blood pressure 133 mm[Hg] Dr. Joe Pillai III Work Phone: [facility] Work Phone: 11-03-2021 09:17-0400 Body height 172.[address] Joe Pillai III Work Phone: [facility] Work Phone: 11-03-2021 09:17-0400 Body mass index (BMI) [Ratio] 41.5 kg/m2 Dr. Joe Pillai III Work Phone: [facility] Work Phone: 11-03-2021 09:17-0400 Body weight 124.[address] Joe Pillai III Work Phone: [facility] Work Phone: 10-19-2021 11:40-0400 Body mass index (BMI) [Ratio] 42.7 kg/m2 Dr. Joe Pillai III Work Phone: [facility] Work Phone: 10-19-2021 11:40-0400 Body weight 127.[address] Joe Pillai III Work Phone: [facility] Work Phone: 10-19-2021 11:40-0400 Diastolic blood pressure 82 mm[Hg] Dr. Joe Pillai III Work Phone: [facility] Work Phone: 10-19-2021 11:40-0400 Systolic blood pressure 112 mm[Hg] Dr. Joe Pillai III Work Phone: [facility] Work Phone: 09-10-2021 08:29-0400 Body mass index (BMI) [Ratio] 42.5 kg/m2 Dr. Joe Pillai III Work Phone: [facility] Work Phone: 09-10-2021 08:29-0400 Body weight [address] Joe Pillai III Work Phone: [facility] Work Phone: 09-10-2021 08:29-0400 Diastolic blood pressure 82 mm[Hg] Dr. Joe Pillai III Work Phone: [facility] Work Phone: 09-10-2021 08:29-0400 Systolic blood pressure 110 mm[Hg] Dr. Joe Pillai III Work Phone: [facility] Work Phone: Encounters Encounter Date Encounter Type Care Provider Facility Start: 01-07-2025 Encounter for genera l adult medical examination without abnormal findings Marlene Toney [facility] Start: 01-07-2025 End: 01-07-[address] Marlene Toney MD -[facility] Work Phone: Start: 01-07-2025 End: 01-07-[address] Marlene Toney MD Work Phone: -[facility] Start: 12-07-2024 End: 12-07-[address] Hilaria Quick MD -[facility] Work Phone: Start: 12-07-2024 End: 12-07-[address] Marlene Toney MD Work Phone: [facility] Work Phone: Start: 11-15-2024 End: 11-15-2024 Patient encounter procedure Azucena SAMAYOA -[facility] Work Phone: Start: 11-15-2024 End: 11-15-[address] Marlene Toney MD Work Phone: [facility] Work Phone: Start: 10-19-2024 End: 10-19-[address] Hilaria Quick MD -[facility] Work Phone: Start: 10-19-2024 End: 10-19-[address] Hilaria Quick MD [facility] Start: 10-19-2024 End: 10-19-2024 ambulatory Marlene Toney Facility:[facility] Start: 08-02-2024 End: 08-02-2024 Patient encounter procedure Mina Rene [facility] -[facility] Work Phone: Start: 08-02-2024 End: 08-02-2024 ambulatory Marlene Toney Facility:[facility] Start: 04-27-2024 End: 04-27-2024 ambulatory [facility] Nurse Fabienne Work Phone: [facility] Start: 04-27-2024 End: 04-27-2024 Patient encounter procedure [facility] Nurse Fabienne Work Phone: [facility] Start: 09-05-2023 End: 09-05-2023 ambulatory MINA DPM [facility] Start: 04-23-2023 End: 04-23-2023 ambulatory Immunization Clinic Nurse Fabienne Work Phone: [facility] Comment on above: Arrived Start: 03-07-2023 End: 03-07-[address] Marlene Toney Work Phone: [facility] Work Phone: Start: 03-07-2023 End: 03-07-[address] [facility] Work [facility]: Start: 02-16-2023 End: 02-16-[address] Marlene Toney Work Phone: [facility] Work Phone: Start: 02-16-2023 End: 02-16-[address] Marlene Toney Work Phone: [facility] Work Phone: Start: 01-27-2023 End: 01-27-[address] Marlene Toney Work Phone: [facility] Work Phone: Start: 01-27-2023 End: 01-27-[address] Marlene Toney Work Phone: [facility] Work Phone: Start: 01-24-2023 End: 01-24-[address] Marlene Toney Work Phone: [facility] Work Phone: Start: 01-24-2023 End: 01-24-[address] Marlene Toney Work Phone: [facility] Work Phone: Start: 12-27-2022 End: 12-27-[address] Marlene Toney Work Phone: [facility] Work Phone: Start: 10-01-2022 End: 10-01-[address] Marlene Toney Work Phone: [facility] Work Phone: Start: 09-17-2022 End: 09-17-[address] Marlene Toney Work Phone: [facility] Work Phone: Start: 09-17-2022 End: 09-17-[address] Marlene Toney Work Phone: [facility], Specimen Start: 09-17-2022 End: 09-17-[address] Marlene Toney Work Phone: [facility] Start: 05-24-2022 End: 05-24-2022 [facility] Start: 11-03-2021 End: 11-03-2021 Admission to same day surgery center Dr. Joe Pillai III Work Phone: [facility] Start: 11-03-2021 Non-patient / Non-visit Dr. Joe Pillai III Work Phone: [facility] Start: 10-19-2021 End: 10-19-[address] Joe Pillai III Work Phone: [facility] Start: 09-10-2021 End: 09-10-[address] Joe Pillai III Work Phone: [facility] Start: 10-12-2018 Patient requested procedure Immunization Turney Work Phone: [facility] Work Phone: Procedures Date Procedure Procedure Detail Performing Clinician Start: 04-23-2023 INFLUENZA VACCINE, AGE 6 MO - 64 YR, QUADRIVALENT (AFLURIA, FLULAVAL, FLUZONE) Kimberlee Hampton MD Work Phone: Start: 02-16-2023 X-ray of lumbar spine, two or three views Dr. Marlene Toney Work Phone: Start: 10-01-[address] Marlene amaya Work Phone: Start: 10-01-[address] Marlene Toney Work Phone: Start: 10-01-[address] Marlene amaya Work Phone: Start: 11-03-[address] Joe beltran III Work Phone: H/O: surgery Status post bila teral salpingectomy Dr. Joe Pillai III Work Phone: Plan of Treatment Date Care Activity Detail Author Start: 05-15-2029 Urine microalbumin profile DTaP,Tdap,Td Vaccine (10 - Td or Tdap) [facility] Start: 02-19-2024 Covid-19 Vaccine ( season) Covid-19 Vaccine ( season) [facility] Start: 02-18-2023 Covid-19 Vaccine ( season) Covid-19 Vaccine ( season) [facility] Start: 09-17-2022 Liquid based cervica l cytology screening [facility] [facility] Start: 06-20-2022 Depression Assessment Depression Ass essment [facility] Start: 10-25-2021 HPV Testing HPV Testing [facility] Start: 10-25-2021 Pap Testing Pap Testing [facility] Start: 10-25-2021 Screening for malign ant neoplasm of cervix Cervical Cancer Screening [facility] Start: 2004 Anxiety Screening Anxiety Screening [facility] Start: 2004 Depression Screening Depression Scre ening [facility] Start: 2004 Hepatitis C Screening Hepatitis C [facility] Start: 2004 Hepatitis C screening Hepatitis C [facility] CBC W Auto Different ial panel - Blood [facility] Comprehensive metabo lic 2000 panel - Serum or Plasma [facility] Lipid 1996 panel - S hemal or Plasma [facility] MG Breast - bilatera l Diagnostic [facility] Path report.final Dx Spec [facility] Patient referral [facility] Work Phone: Thyroid stimulating hormone measurement [facility] US Breast limited [facility] Immunizations Immunization Date Immunization Notes Care Provider Fa [facility] 04-27-2024 influenza, injectabl e, quadrivalent, preservative free Dr. Marlene Toney MD Work Phone: [facility] 04-27-2024 influenza, seasonal, injectable Immunization [place] Work Phone: [facility] 04-23-2023 influenza, injectabl e, quadrivalent, contains preservative Immunization [place] Work Phone: [facility] 04-23-2023 influenza, injectabl e, quadrivalent, preservative free Dr. Marlene Toney MD Work Phone: [facility] 03-10-2022 influenza, injectabl e, quadrivalent, preservative free Dr. Marlene Toney Work Phone: [facility] 03-10-2022 influenza, seasonal, injectable Dr. Marlene Toney Work Phone: [facility] 06-04-2021 Covid (Pfizer) Dr. Marlene olivera Work Phone: [facility] 09-21-2020 Covid (Pfizer) Dr. Marlene Franco ndlaed Work Phone: [facility] 08-31-2020 Covid (Pfizer) Dr. Marlene Franco ndlaed Work Phone: [facility] 05-15-2019 diphtheria, tetanus toxoids and acellular pertussis vaccine, unspecified formulation Dr. Joe Pillai III Work Phone: [facility] Work Phone: 05-15-2019 tetanus toxoid, reduced diphtheria toxoid, and acellular pertussis vaccine, adsorbed Dr. Joe Pillai III Work Phone: [facility] 09-09-2015 measles, mumps and rubella virus vaccine Dr. Joe Pillai III Work Phone: [facility] 06-25-2015 tetanus toxoid, reduced diphtheria toxoid, and acellular pertussis vaccine, adsorbed Dr. Marlene Toney Work Phone: [facility] 08-02-[address] Perry Cazareslay Work Phone: [facility] 06-23-2007 hepatitis A vaccine, unspecified formulation Immunization [place] Work Phone: [facility] Work Phone: 06-23-2007 poliovirus vaccine, inactivated Immunization [place] Work Phone: [facility] Work Phone: 06-23-2007 tetanus toxoid, reduced diphtheria toxoid, and acellular pertussis vaccine, adsorbed Immunization [place] Work Phone: [facility] Work Phone: 12-07-2004 Meningococcal, MCV4, unspecified conjugate formulation(groups A, C, Y and W-135) Immunization [place] Work Phone: [facility] Work Phone: 11-11-2003 hepatitis B vaccine, pediatric or pediatric/adolescent dosage Immunization [place] Work Phone: [facility] Work Phone: 03-23-2003 hepatitis B vaccine, pediatric or pediatric/adolescent dosage Immunization [place] Work Phone: [facility] Work Phone: 02-19-2003 hepatitis B vaccine, pediatric or pediatric/adolescent dosage Immunization Fabienne Work Phone: [facility] Work Phone: 01-09-2002 diphtheria and tetan us toxoids, adsorbed for pediatric use Immunization Fabienne Work Phone: [facility] Work Phone: 01-19-1999 measles, mumps and rubella virus vaccine Immunization Fabienne Work Phone: [facility] Work Phone: 08-13-1991 diphtheria, tetanus toxoids and acellular pertussis vaccine Immunization Fabienne Work Phone: [facility] Work Phone: 08-13-1991 hepatitis B vaccine, pediatric or pediatric/adolescent dosage Immunization Fabienne Work Phone: [facility] Work Phone: 01-23-1988 diphtheria, tetanus toxoids and acellular pertussis vaccine Immunization Afbienne Work Phone: [facility] Work Phone: 01-23-1988 haemophilus influenz ae type b vaccine, conjugate unspecified formulation Immunization [place] Work Phone: [facility] Work Phone: 01-23-1988 poliovirus vaccine, inactivated Immunization Fabienne Work Phone: [facility] Work Phone: 10-31-1987 measles, mumps and rubella virus vaccine Immunization [place] Work Phone: [facility] Work Phone: 02-03-1987 diphtheria, tetanus toxoids and acellular pertussis vaccine Immunization Fabienne Work Phone: [facility] Work Phone: 02-03-1987 poliovirus vaccine, inactivated Immunization [place] Work Phone: [facility] Work Phone: 1986 diphtheria, tetanus toxoids and acellular pertussis vaccine Immunization Fabienne Work Phone: [facility] Work Phone: 1986 poliovirus vaccine, inactivated Immunization [place] Work Phone: [facility] Work Phone: 1986 diphtheria, tetanus toxoids and acellular pertussis vaccine Immunization Fabienne Work Phone: [facility] Work Phone: 1986 poliovirus vaccine, inactivated Immunization Fabienne Work Phone: [facility] Work Phone: Payers Date Payer Category Payer Self-pay [id number] 2021 Unknown [id number] 2021 [id number] 2021 Unknown [id number] 2012 Private Health Insurance [id number] 1986 Unknown [id number] 1986 Unknown [id number] Unknown [id number] Unknown [id number] [id number] Unknown [id number] [id number] Unknown [id number] [id number] Unknown [id number] [id number] Social History Date Type Detail Facility [facility] Work Phone: Start: 10-19-2021 End: 02-16-2023 Tobacco smoking status NHIS Unknown if ever smoked [facility] Start: 2019 None [facility] Start: 1985 Sex Assigned At Female [facility] Start: 03-30-2011 End: 01-07-2025 Tobacco smoking status NHIS Never smoked tobacco [facility] Work Phone: Start: 03-30-2011 Tobacco use and exposure Smokeless tobacco non-user [facility] Work Phone: Start: 01-24-2022 Alcohol intake Ex-drinker (finding) [facility] Start: 01-24-2022 End: 04-27-2024 Alcohol intake [facility] Start: 01-24-2022 End: 04-27-2024 Tobacco use panel [facility] National Score (1-100), lower number is lower risk Not on file [facility] Start: 1985 Sex Assigned At Not on file [facility] Medical Equipment Procedure Code Equipment Code Equipment Origin al Text Equipment Identifier Dates Salpingectomy, laparoscopic Plant polysaccharide haemostatic agent, bioabsorbable ([id number] [facility] Start: 11-03-2021 Mental Status Date Assessment Result Facility 11-03-2021 Cognitive function Voice/Name [facility] Work Phone: Evaluation note 10-19-2024 Note Date & Type Note Facility 10-19-2024 Evaluation note Diagnosis Onset Date Resolution Abnormal uterine bleeding acute October 19, 2024 2: 55pm Anxiety acute October 19, 2024 2:55pm Class 3 obesity acute October 19, 2024 2:55pm DANYELLE (stress urinary incontinence, female) acute October 19 2:55pm Uterine fibroid acute October 19, 2024 2:55pm Encounter for routine gynecological examination noneactive October 19, 2024 2: 55pm Abnormal uterine bleeding acute November 15, 2024 10:42am Anxiety acute November 15, 2024 10:42am BMI 40.0-44.9, adult acute November 15, 2024 10:42am Class 3 obesity acute November 15, 2024 10:42am Other obesity not elsewhere classified acute November 15, 025 10:42am Abnormal uterine bleeding acute December 07, 2024 11:32am Anxiety acute December 07 11:32am BMI 40.0-44.9, adult acute December 07, 2024 11:32am Class 3 obesity acute November 11:32am Other obesity not elsewhere classified acute December 07, 2024 11:32am [email or web address] Work Phone: Evaluation note 10-19-2024 Note Date & Type Note Facility 10-19-2024 Evaluation note Diagnosis Onset Date Resolution Abnormal uterine bleeding acute October 19, 2024 2: 55pm Anxiety acute October 19, 2024 2:55pm Class 3 obesity acute October 19, 2024 2:55pm DANYELLE (stress urinary incontinence, female) acute October 19, 025 2:55pm Uterine fibroid acute October 19, 2024 2:55pm Encounter for routine gynecological examination noneactive October 19, 2024 2: 55pm Abnormal uterine bleeding acute November 15, 2024 10:42am Anxiety acute November 15, 2024 10:42am BMI 40.0-44.9, adult acute November 15, 2024 10:42am Class 3 obesity acute November 15, 2024 10:42am Other obesity not elsewhere classified acute November 15, 025 10:42am Anxiety acute December 07 11:32am BMI 40.0-44.9, adult acute December 07, 2024 11:32am Class 3 obesity acute November 11:32am Other obesity not elsewhere classified acute December 07, 2024 11:32am Mild anxiety noneactive January 07, 2 025 7:30am Annual physical exam noneactive January 07, 2025 7:30am Mixed hyperlipidemia noneactive January 07, 2025 7:30am Morbid obesity with BMI of 40.0-44.9, adult noneactive January 07, 2 025 7:30am Rosacea noneactive January 07 7:30am Screening for thyroid disorder noneactive January 07, 2025 7:30am [facility] Work Phone: Evaluation note 08-02-2024 Note Date & Type Note Facility 08-02-2024 Evaluation note Diagnosis Onset Date Resolution Acute bronchitis acute August 02, 2024 7:23am Abnormal uterine bleeding acute October 19, 2024 2: 55pm Anxiety acute October 19, 2024 2:55pm Class 3 obesity acute October 19, 2024 2:55pm DANYELLE (stress urinary incontinence, female) acute October 19, 025 2:55pm Uterine fibroid acute October 19, 2024 2:55pm Encounter for routine gynecological examination noneactive October 19, 2024 2: 55pm Abnormal uterine bleeding acute November 15, 2024 10:42am Anxiety acute November 15, 2024 10:42am BMI 40.0-44.9, adult acute November 15, 2024 10:42am Class 3 obesity acute November 15, 2024 10:42am Other obesity not elsewhere classified acute November 15 025 10:42am [facility] Work Phone: History of Past illness Narrative 02-07-2015 Note Date & Type Note Facility 02-07-2015 History of Past i llness Narrative Problem Noted Date Diagnosed Date Resolved Date Rubella non-immune status, antepartum 02/07/2015 10/13/2015 Family history of spina bifida 02/04/2015 10/13/2015 Overview: Paternal side Encounter for supervision of normal first in first trimester 02/04/2015 10/13/2015 Vaginal bleeding in 02/04/2015 10/13/2015 Obesity affecting 02/04/2015 10/13/2015 documented as of this encounter (statuses as of 04/24/2023) [facility] Evaluation note Note Date & Type Note Facility Evaluation note Diagnosis Onset Date Class 3 obesity acute Eating disorder acute Malpositioned IUD acute Sterilization acute Malpositioned IUD acute Sterilization acute Malpositioned IUD acute Sterilization acute [facility] Work Phone: Evaluation note Note Date & Type Note Facility Evaluation note Diagnosis Onset Date Abnormal uterine bleeding ac [place] Anxiety acute Breast lump on right side at 9 o'clock position acute Class 3 obesity acute Uterine fibroid acute Encounter for routine gyneco logical examination noneactive [facility] Work Phone: Evaluation note Note Date & Type Note Facility Evaluation note Diagnosis Onset Date Mild anxiety noneactive Screening for cardiovascular condition noneactive Heavy menstrual period nonea ctive Acne noneactive Morbid obesity with BMI of 40.0-44.9, adult noneactive Right knee pain noneactive [facility] Work Phone: Evaluation note Note Date & Type Note Facility Evaluation note Diagnosis Onset Date Mild anxiety noneactive Screening for cardiovascular condition noneactive Heavy menstrual period nonea ctive Acne noneactive Morbid obesity with BMI of 40.0-44.9, adult noneactive Right knee pain noneactive Acute right-sided low back pain noneactive [facility] Work Phone: Reason for referral (narrative) Note Date & Type Note Facility Reason for referral (narrative) No reason for referral information available [email or web address] Work Phone: Chief Complaint and Reason for Visit 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 BILATERAL LAP SALPING, IUD REMOVAL BILATERAL LAP SALPING, IUD REMOVAL Reason for Visit Class 3 obesity Eating disorder Malpositioned IUD Sterilization Malpositioned IUD Sterilization Malpositioned IUD Sterilization Chief 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) Reason for Visit Abnormal uterine ble eding Anxiety Breast lump on right side at 9 o'clock position Class 3 obesity Uterine fibroid Encounter for routine gynecological examination Chief Complaint RIGHT BREAST LUMP FOLLOW UP E ORDERS INT LABS Reason for Visit Mild anxiety Screening for cardiovascular condition Heavy menstrual period Acne Morbid obesity with BMI of 40.0-44.9, adult Right knee pain Chief Complaint FOLLOW UP E ORDERS INT LABS Reason for Visit Mild anxiety Screening for cardiovascular condition Heavy menstrual period Acne Morbid obesity with BMI of 40.0-44.9, adult Right knee pain Chief Complaint FOLLOW UP E ORDERS INT LABS BACK SPASMS EORDER Reason for Visit Mild anxiety Screening for cardiovascular condition Heavy menstrual period Acne Morbid obesity with BMI of 40.0-44.9, adult Right knee pain Acute right-sided low back pain Chief Complaint FOLLOW UP E ORDERS INT LABS BACK SPASMS EORDER E ORDERS Reason for Visit Mild anxiety Screening for cardiovascular condition Heavy menstrual period Acne Morbid obesity with BMI of 40.0-44.9, adult Right knee pain Acute right-sided low back pain Chief Complaint Admit Date COUGH, CHEST CONGESTION August 02, 2 025 7:23am 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 19, 2024 2:55pm Weight Management November 15, 2024 10:42 am Reason for Visit Admit Date Acute bronchitis August 02, 2024 7:23am Abnormal uterine bleeding October 19, 2024 2:55pm Anxiety October 19, 2024 2:55pm Class 3 obesity October 19, 2024 2:55pm DANYELLE (stress urinary incontinence, female ) October 19, 2024 2:55pm Uterine fibroid October 19, 2024 2:55pm Encounter for routine gynecological exam ination October 19, 2024 2:55pm Abnormal uterine bleeding November 15, 2024 10:42am Anxiety November 15, 2024 10:42 am BMI 40.0-44.9, adult November 15, 2024 10:4 2am Class 3 obesity November 15, 2024 10:42 am Other obesity not elsewhere classified M ay 2024 10:42am Chief Complaint Admit Date 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 19, 2024 2:55pm Weight Management November 15, 2024 10:42 am weight management December 07, 2024 11:3 2am Reason for Visit Admit Date Abnormal uterine bleeding October 19, 2024 2:55pm Anxiety October 19, 2024 2:55pm Class 3 obesity October 19, 2024 2:55pm DANYELLE (stress urinary incontinence, female ) October 19, 2024 2:55pm Uterine fibroid October 19, 2024 2:55pm Encounter for routine gynecological exam ination October 19, 2024 2:55pm Abnormal uterine bleeding November 15, 2024 10:42am Anxiety November 15, 2024 10:42 am BMI 40.0-44.9, adult November 15, 2024 10:4 2am Class 3 obesity November 15, 2024 10:42 am Other obesity not elsewhere classified M ay 2024 10:42am Abnormal uterine bleeding December 07 11:32am Anxiety December 07, 2024 11:3 2am BMI 40.0-44.9, adult December 07, 2024 11: 32am Class 3 obesity December 07, 2024 11:3 2am Other obesity not elsewhere classified J une 2024 11:32am Chief Complaint Admit Date 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) May 2nd, 2025 2:55pm Weight Management November 15, 2024 10:42 am weight management December 07, 2024 11:3 2am YEARLY January 07, 2025 7:30 am Reason for Visit Admit Date Abnormal uterine bleeding October 19, 2024 2:55pm Anxiety October 19, 2024 2:55pm Class 3 obesity October 19, 2024 2:55pm DANYELLE (stress urinary incontinence, female ) October 19, 2024 2:55pm Uterine fibroid October 19, 2024 2:55pm Encounter for routine gynecological exam ination October 19, 2024 2:55pm Abnormal uterine bleeding November 15, 2024 10:42am Anxiety November 15, 2024 10:42 am BMI 40.0-44.9, adult November 15, 2024 10:4 2am Class 3 obesity November 15, 2024 10:42 am Other obesity not elsewhere classified M ay 2024 10:42am Anxiety December 07, 2024 11:3 2am BMI 40.0-44.9, adult December 07, 2024 11: 32am Class 3 obesity December 07, 2024 11:3 2am Other obesity not elsewhere classified J 2024 11:32am Mild anxiety January 07, 2025 7:30 am Annual physical exam January 07, 2025 7:3 0am Mixed hyperlipidemia January 07, 2025 7:3 0am Morbid obesity with BMI of 40.0-44.9, ad ult January 07, 2025 7:30am Rosacea January 07, 2025 7:30 am Screening for thyroid disorder December 7:30am Advance Directives No Advanced Directives Records Found Advance Directive Response Recorded Date/ Time Name of Medical Power of Local Government Legislator SPOUSE October 27, 2021 9:06am Living Will Yes July 23 11:14am Power of Local Government Legislator Yes 2019 11:14am Advance Directive Response Recorded Date/ Time Living Will Yes July 23 11:14am Power of Local Government Legislator Yes 2019 11:14am Advance Directive Response Recorded Date/ Time Living Will Yes October 27, 2021 9 :06am Power of Local Government Legislator Yes October 27, 2021 9:06am Advance Directive Response Recorded Date/ Time Living Will Yes October 27, 2021 9 :06am Do you have a Healthcare Power of Local Government Legislator? Yes October 27, 2021 9:06am Summary Purpose Family History Relationship Condition Age at Onset Recorded Date/T [place] grandfather Cerebrovascular accident (CVA) Unknown Arthritis Unknown grandmother Arthritis Unknown father Hypertension Unknown High blood cholesterol Unknown grandfather Cardiac disease Unknown uncle Cardiac disease Unknown No Family History Records Found Additional Source Comments Goals (unrecognized section and content) Goals may be documented in a n alternate sectionGoals may be documented in an alternate sectionGoals may be documented in an alternate sectionGoals may be documented in an alternate sectionGoals may be documented in an alternate sectionGoals may be documented in an alternate sectionGoals may be documented in an alternate sectionGoals may be documented in an alternate sectionGoals may be documented in an alternate section INFORMATION SOURCE (unrecogn ized section and content) DATE CREATED AUTHOR 05/24/2022 [facility] DATE CREATED AUTHOR AUTHOR'S ORGANIZ ATION 09/05/2023 [facility] DATE CREATED AUTHOR AUTHOR'S ORGANIZ ATION 04/29/2024 [facility] DATE CREATED AUTHOR AUTHOR'S ORGANIZ ATION 01/08/2025 [facility] Care Teams (unrecognized sec tion and content) Team Status: Active Member Role Status Dates Dr. Joe Pillai III, MD Family Provider Active Dr. Marlene Toney MD Primary Care Provider Active Team Status: Inactive Member Role Status Dates Dr. Hilaria Quick MD Attending Provider Active Dr. Marlene Toney MD Primary Care Provider, Referri ng Provider Active Team Status: Inactive Member Role Status Dates Dr. Marlene Toney MD Primary Care Provider Active Dr. Hilaria Quick MD Attending Provider, Referr ing Provider Active Team Status: Inactive Member Role Status Dates Dr. Marlene Toney MD Primary Care Pro vider, Attending Provider, Referring Provider Active Team Status: Active Member Role Status Dates Dr. Marlene Toney MD Primary Care Pro vider, Attending Provider, Referring Provider Active Team Status: Inactive Member Role Status Dates Dr. Marlene Toney MD Primary Care Provider Active Start: August 02, 2024 End: August 02, 2024 Dr. Marlene Toney MD Referring Provider Active Start: August 02, 2024 End: August 02, 2024 Mina Rene PA, PA Attending Provider Active Sta rt: August 02, 2024 End: August 02, 2024 Team Status: Inactive Member Role Status Dates Dr. Marlene Toney MD Primary Care Provider Active Start: October 19, 2024 End: October 19, 2024 Dr. Marlene Toney MD Referring Provider Active Start: October 19, 2024 End: October 19, 2024 Dr. Hilaria Quick MD Attending Provider Active Start: October 19, 2024 End: October 19, 2024 Team Status: Inactive Member Role Status Dates Dr. Marlene Toney MD Primary Care Provider Active Start: November 15, 2024 End: November 15, 2024 Dr. Marlene Toney MD Referring Provider Active Start: November 15, 2024 End: November 15, 2024 YAO Su Attending Provider Active Start: November 15, 2024 End: November 15, 2024 Team Status: Inactive Member Role Status Dates Dr. Marlene Toney MD Primary Care Provider Active Start: December 07, 2024 End: December 07, 2024 Dr. Marlene Toney MD Referring Provider Active Start: December 07, 2024 End: December 07, 2024 Dr. Hilaria Quick MD Attending Provider Active Start: December 07, 2024 End: December 07, 2024 Team Status: Active Member Role/Relationship Status Dates Dr. Marlene Toney MD Primary Care Provider Active Team Status: Inactive Member Role/Relationship Status Dates Dr. Marlene Toney MD Primary Care Provider Active Start: October 19, 2024 End: October 19, 2024 Dr. Marlene Toney MD Referring Provider Active Start: October 19, 2024 End: October 19, 2024 Dr. Hilaria Quick MD Attending Provider Active Start: October 19, 2024 End: October 19, 2024 Team Status: Inactive Member Role/Relationship Status Dates Dr. Marlene Toney MD Primary Care Provider Active Start: November 15, 2024 End: November 15, 2024 Dr. Marlene Toney MD Referring Provider Active Start: November 15, 2024 End: November 15, 2024 YAO Su Attending Provider Active Start: November 15, 2024 End: November 15, 2024 Team Status: Inactive Member Role/Relationship Status Dates Dr. Marlene Toney MD Primary Care Provider Active Start: December 07, 2024 End: December 07, 2024 Dr. Marlene Toney MD Referring Provider Active Start: December 07, 2024 End: December 07, 2024 Dr. Hilaria Quick MD Attending Provider Active Start: December 07, 2024 End: December 07, 2024 Team Status: Inactive Member Role/Relationship Status Dates Dr. Marlene Toney MD Primary Care Provider Active Start: January 07, 2025 End: January 07, 2025 Dr. Marlene Toney MD Attending Provider Active Start: January 07, 2025 End: January 07, 2025 Dr. Marlene Toney MD Referring Provider Active Start: January 07, 2025 End: January 07, 2025 Source Comments (unrecognize d section and content) In the event this informatio n is protected by the Federal Confidentiality of Alcohol and Drug Abuse Patient Records regulations: The Federal rules restrict any use of the information to criminally investigate or prosecute any alcohol or drug abuse patient.[facility] [place] the event this information is protected by the Federal Confidentiality of Alcohol and Drug Abuse Patient Records regulations: The Federal rules restrict any use of the information to criminally investigate or prosecute any alcohol or drug abuse patient.[facility] FOR RECORDS PERTAINING TO PATIENTS WHO ARE OR HAVE BEEN ENROLLED IN A CHEMICAL DEPENDENCY/SUBSTANCEABUSE PROGRAM, SOME INFORMATION MAY BE OMITTED. This clinical summary was aggregated from multiple sources. Caution should be exercised in using it in the provision of clinical care. This summary normalizes information from multiple sources, and as a consequence, information in this document may materially change the coding, format and clinical context of patient data. In addition, data may be omitted in some cases. CLINICAL DECISIONS SHOULD BE BASED ON THE PRIMARY CLINICAL RECORDS. [employer] [facility]. provides no warranty or guarantee of the accuracy or completeness of information in this document.
[2025-01-14 06:39] LABS: Hematocrit 41.3 % (37-47); Hemoglobin 14.1 g/dL (12.0-15.0); Immature Granulocytes Count 0.030 X10^3/uL (0.0-0.0); Mean Corp Hgb Conc 34.1 g/dL (32-36); Mean Corpuscular Volume 91.0 fL (81-99); Mean Platelet Vol. 9.7 fl (6.2-12.0); NRBC Flagged by Analyzer 0 % (0-5); Platelet Count 350 K/mm3 (150-450); RBC Distribution Width CV 12.6 % (11.6-14.6); RBC Distribution Width SD 41.2 fl (35.1-43.9); Red Blood Count 4.54 M/mm3 (4.2-5.4); White Blood Count 9.5 K/mm3 (4.4-11.0)
[2025-01-14 07:14] LABS: AST(SGOT) 24 U/L (<=31); Alanine Aminotransfer ALT/SGPT 22 U/L (<=34); Albumin, Serum 4.3 g/dL (3.5-5.0); Alkaline Phosphatase 61 U/L (35-104); Anion Gap 12 (5-15); BUN 14 mg/dL (4-19); BUN/Creat Ratio 17.4 RATIO (10-20); Calcium,Total 9.2 mg/dL (7.6-11.0); Carbon Dioxide 20.3 mmol/L (21.0-32.0); Chloride 106 mmol/L (98-108); Cholesterol 180 mg/dL (<=200); Globulin 2.3 g/dL (2.2-4.2); Glucose 93 mg/dL (70-99); Low Density Lipoprotein Calc. 106 mg/dL; Potassium 4.2 mmol/L (3.3-5.1); Triglycerides 101 mg/dL; Very Low Density Lipoprotein 20 mg/dL (5-40); cholesterol:hdl ratio screen 3.33
== END | disposition home or self-care (01) ==
LOC: LAB 06:04
PROVIDERS: PCP Internal Medicine; Referring Provider Internal Medicine; Visit Provider Internal Medicine
DX: Z00.00 Encounter for general adult medical examination without abnormal findings (principal); E66.01 Morbid (severe) obesity due to excess calories; Z68.41 Body mass index [BMI] 40.0-44.9, adult; Z13.29 Encounter for screening for other suspected endocrine disorder; E78.2 Mixed hyperlipidemia; F41.9 Anxiety disorder, unspecified
CPT/HCPCS: 36415; 80053; 80061; 84443; 85025

== ENCOUNTER → 2025-03-11 | Outpatient (CLI) | payer BC, SELFPAY | END | disposition home or self-care (01) | PROVIDERS: PCP Internal Medicine; Referring Provider Nurse Practitioner Family; Visit Provider Nurse Practitioner Family | DX: Z13.29 Encounter for screening for other suspected endocrine disorder (principal); R94.6 Abnormal results of thyroid function studies | CPT/HCPCS: 84439; 84443 ==